=== PATIENT | male | born 1955 | race Caucasian/White ===

== ENCOUNTER 2020-08-05 10:03 | Inpatient (IN) ==
[2020-08-05 10:26] LABS: Basophils # (auto) 0.03 K/uL (0-0.2); Basophils % (auto) 0.3 %; Eosinophils # (auto) 0.02 K/uL (0-0.5); Eosinophils % (auto) 0.2 %; Hematocrit (blood only) 34.9 % (42-52); Hemoglobin 11.5 g/dL (14.0-18.0); Immature Granulocytes # (auto) 0.25 K/uL (0.00-0.02); Immature Granulocytes % (auto) 2.1 %; Lymphocytes # (auto) 1.41 K/uL (1.2-3.4); Lymphocytes % (auto) 12.1 %; Mean Corpuscular Hemoglobin 29.7 pg (25-34); Mean Corpuscular Volume 90.2 fL (80-100); Mean Platelet Volume 10.1 fL (7.4-10.4); Monocytes # (auto) 2.52 K/uL (0.11-0.59); Monocytes % (auto) 21.6 %; Neutrophils # (auto) 7.41 K/uL (1.4-6.5); Neutrophils % (auto) 63.7 %; Platelet Count 188 K/uL (130-400); RDW Coefficient of Variation 19.7 % (11.5-14.5); RDW Standard Deviation 60.8 fL (36.4-46.3); Red Blood Count 3.87 M/uL (4.7-6.1); White Blood Count 11.64 K/uL (4.8-10.8)
[2020-08-05] MEDS ORDERED: SODIUM CHLORIDE 0.9% 500 ML IV STA (10:26)
--- NOTE | 2020-08-05 10:38 | Emergency Department Note ---
History of Present Illness General Chief complaint: Abdominal Pain Time Seen by Provider: 08/05/20 10:16 Source: patient, family (I discussed with on the telephone) and EMS Mode of arrival: EMS Limitations: no limitations History of Present Illness Maximum Pain Intensity: 7 This patient comes in with lower abdominal pain and distention. He has a history of colon cancer with metastases to the liver. He has had all of his treatment in [place]. He is currently inpatient for weakness at [facility]. 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 He is also been pancytopenic due to recent chemo. He reports no fever he says his abdomen feels distended he tells me is never had any paracentesis. He denies chest pain or shortness of breath no Covid. He do es not think he is have the Covid vaccine. Medical command was given on route by Dr. Banegas and the patient had been given fentanyl and seems to be resting comfortably. He is in a port which has been accessed prior to arrival. There is a POLST which states limited interventions and DNR. There is also note on the chart that the sisters who are power of assistant district attorney want him transferred to [facility] if needed to be admitted. Home Medications Medication Instructions Recorded Confirmed Type cefepime [Maxipime] 2 g IV Q12H 08/05/20 08/05/20 History cholecalciferol (vitamin D3) 50 mcg PO QAM 08/05/20 08/05/20 History [Vitamin D3] docusate sodium 100 mg PO BID 08/05/20 08/05/20 History furosemide [Lasix] 20 mg PO BID 08/05/20 08/05/20 History metoprolol succinate 25 mg PO QAM 08/05/20 08/05/20 History multivitamin 1 tab PO QAM 08/05/20 08/05/20 History pantoprazole 40 mg PO DAILYBB 08/05/20 08/05/20 History potassium chloride 20 meq PO BIDM 08/05/20 08/05/20 History sodium chloride 0.9 % (flush) 10 ml IV Q12H 08/05/20 08/05/20 History [Normal Saline Flush] Allergies Allergy/AdvReac Type Severity Reaction Status Date / Time No Known Allergies Allergy Unverified 08/05/20 10:26 Past Med/Surg History Medical History (Updated 08/05/20 @ 15:08 by Catracho Guthrie MD) Port-A-Cath in place Family History (Updated 08/05/20 @ 14:29 by Talha Kahn) Mother Cancer Father Myocardial infarction Denies family history of Colorectal cancer Social History (Updated 08/05/20 @ 14:31 by Talha Kahn) Smoking Status: Former smoker Tobacco Type: Cigarettes Age Quit Using Tobacco: 21; Hx Alcohol Use: Yes Alcohol type Comment: quit in 20s marital status: / Current Living Situation: Alone Current Living Situation Comment: lives alone in [place] 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 Review of Systems A total of 10 systems reviewed and were otherwise negative Physical Exam Vital Signs Vital Signs - 24 hr 08/05/20 10:09 08/05/20 11:11 08/05/20 11:30 Temperature 36.8 C Temperature Source Oral Pulse Rate 94 H 93 H 91 H Pulse Rate from SpO2 Sensor 92 H 90 Pulse Rhythm Regular Pulse Strength Normal Respiratory Rate 21 14 22 Respiratory Effort / Characteristics Non-Labored Respiratory Depth Normal Respiratory Pattern Regular Blood Pressure 109/67 120/79 101/80 Blood Pressure Mean 81 92 87 Blood Pressure Position Sitting Pulse Oximetry 98 94 95 Oxygen Delivery Method Room Air Sepsis Recent Fever Within 48 Hours No Sepsis New/Unexplained Change in Mental Status No Sepsis Action Taken by Nursing No Action Required 08/05/20 12:30 08/05/20 13:00 Temperature Temperature Source Pulse Rate 91 H 91 H Pulse Rate from SpO2 Sensor 90 93 H Pulse Rhythm Pulse Strength Respiratory Rate 16 16 Respiratory Effort / Characteristics Respiratory Depth Respiratory Pattern Blood Pressure 112/83 103/77 Blood Pressure Mean 92 85 Blood Pressure Position Pulse Oximetry 92 93 Oxygen Delivery Method Sepsis Recent Fever Within 48 Hours Sepsis New/Unexplained Change in Mental Status Sepsis Action Taken by Nursing General: Well developed well nourished chronically ill-appearing older male who appears in no acute distress, breathing comfortably on room air. Normal speech HEENT: Normal cephalic atraumatic. Pupils are equal round and reactive to light. Extraocular movements are intact. Oropharynx is pink with moist mucous membranes. No swelling of the mouth lips or tongue. Neck: Supple with a midline trachea. No meningeal signs or stiffness, no JVD or bruits. No Stridor. Chest: Clear to auscultation bilaterally. No wheezes or rhonchi. No increased work of breathing. A port in left chest which is accessed Heart: Regular rate and rhythm without murmurs or gallops. Abdomen: Soft nontender, mildly distended without significant tenderness and without rebound guarding or rigidity. Extremities: No cyanosis clubbing. Bilateral 1+ lower extremity edema. No calf tenderness or assymetry Spine/Back. Non tender to palpation. No CVA tenderness Skin: Good turgor without rashes. Neurologic exam: Cranial nerves two through 12 are intact. Motor and sensation are intact and symmetrical throughout. Course Administered Medications Discontinued Medications Sodium Chloride (Nss) 500 mls @ 999 mls/hr IV .Q31M STA Stop: 08/05/20 10:56 Last Infusion: 08/05/20 12:36 Dose: 0 mls/hr Documented by: [id number] Admin: 08/05/20 10:40 Dose: 999 mls/hr Documented by: [id number] Ioversol (Ioversol 100ml) 90 ml IV ONCE ONE Stop: 08/05/20 11:51 Last Admin: 08/05/20 11:51 Dose: 90 ml Documented by: [id number] Medical Decision Making Differential Diagnosis Cancer related complication, infection, ascites, SBP, neutropenia, bowel obstruction, pain related to cancer, metastatic cancer, cardiac disease, Covid, electrolyte or metabolic abnormality, UTI Medical Records Attestation: I reviewed the patient's medical records. Home Medications Current Medication List: was personally reviewed by me Laboratory Data Attestation: I reviewed the patient's lab results. Result diagrams: 08/05/20 10:10 08/05/20 10:10 Lab Results 08/05/20 08/05/20 08/05/20 Range/Units 10:10 10:10 10:10 WBC 11.64 H (4.8-10.8) K/uL RBC 3.87 L (4.7-6.1) M/uL Hgb 11.5 L (14.0-18.0) g/dL Hct 34.9 L (42-52) % MCV 90.2 (80-100) fL MCH 29.7 (25-34) pg MCHC 33.0 (32-36) g/dL RDW Std Deviation 60.8 H (36.4-46.3) fL RDW Coeff of Lucy 19.7 H (11.5-14.5) % Plt Count 188 (130-400) K/uL MPV 10.1 (7.4-10.4) fL Immature Gran % (Auto) 2.1 % Neut % (Auto) 63.7 % Lymph % (Auto) 12.1 % Norton % (Auto) 21.6 % Eos % (Auto) 0.2 % Baso % (Auto) 0.3 % Neut # (Auto) 7.41 H (1.4-6.5) K/uL Lymph # (Auto) 1.41 (1.2-3.4) K/uL Norton # (Auto) 2.52 H (0.11-0.59) K/uL Eos # (Auto) 0.02 (0-0.5) K/uL Baso # (Auto) 0.03 (0-0.2) K/uL Immature Gran # (Auto) 0.25 H (0.00-0.02) K/uL PT 13.0 H (9.0-12.0) Seconds INR 1.3 H (0.9-1.1) APTT 30.0 (21.0-31.0) Seconds PTT Ratio 1.1 Sodium 136 (136-145) mmol/L Potassium 3.7 (3.5-5.1) mmol/L Chloride 106 (98-107) mmol/L Carbon Dioxide 23 (21-32) mmol/L Anion Gap 8.0 (3-11) BUN 32 H (7-18) mg/dl Creatinine 0.86 (0.6-1.4) mg/dl Est Cr Clr Drug Dosing 86.8 ml/min Est GFR ( Amer) 106.2 Est GFR (Non-Af Amer) 91.6 BUN/Creatinine Ratio 37.6 H (10-20) Glucose 98 (70-99) mg/dl Calcium 8.6 (8.5-10.1) mg/dl Total Bilirubin 2.8 H (0.2-1) mg/dl AST 113 H (15-37) U/L ALT 33 (12-78) U/L Alkaline Phosphatase 377 H (45-117) U/L Troponin I (0-0.045) ng/ml Total Protein 6.0 L (6.4-8.2) gm/dl Albumin 1.8 L (3.4-5.0) gm/dl Globulin 4.2 H (2.5-4.0) gm/dl Albumin/Globulin Ratio 0.4 L (0.9-2) Lipase 170 (73-393) U/L COVID-19 Eval Order SARS-CoV-2 (PCR) (Negative) Influenza Type A (PCR) (Neg) Influenza Type B (PCR) (Neg) RSV (RT-PCR) (Neg) 08/05/20 08/05/20 08/05/20 Range/Units 10:10 11:18 11:18 WBC (4.8-10.8) K/uL RBC (4.7-6.1) M/uL Hgb (14.0-18.0) g/dL Hct (42-52) % MCV (80-100) fL MCH (25-34) pg MCHC (32-36) g/dL RDW Std Deviation (36.4-46.3) fL RDW Coeff of Lucy (11.5-14.5) % Plt Count (130-400) K/uL MPV (7.4-10.4) fL Immature Gran % (Auto) % Neut % (Auto) % Lymph % (Auto) % Norton % (Auto) % Eos % (Auto) % Baso % (Auto) % Neut # (Auto) (1.4-6.5) K/uL Lymph # (Auto) (1.2-3.4) K/uL Norton # (Auto) (0.11-0.59) K/uL Eos # (Auto) (0-0.5) K/uL Baso # (Auto) (0-0.2) K/uL Immature Gran # (Auto) (0.00-0.02) K/uL PT (9.0-12.0) Seconds INR (0.9-1.1) APTT (21.0-31.0) Seconds PTT Ratio Sodium (136-145) mmol/L Potassium (3.5-5.1) mmol/L Chloride (98-107) mmol/L Carbon Dioxide (21-32) mmol/L Anion Gap (3-11) BUN (7-18) mg/dl Creatinine (0.6-1.4) mg/dl Est Cr Clr Drug Dosing ml/min Est GFR ( Amer) Est GFR (Non-Af Amer) BUN/Creatinine Ratio (10-20) Glucose (70-99) mg/dl Calcium (8.5-10.1) mg/dl Total Bilirubin (0.2-1) mg/dl AST (15-37) U/L ALT (12-78) U/L Alkaline Phosphatase (45-117) U/L Troponin I < 0.015 (0-0.045) ng/ml Total Protein (6.4-8.2) gm/dl Albumin (3.4-5.0) gm/dl Globulin (2.5-4.0) gm/dl Albumin/Globulin Ratio (0.9-2) Lipase (73-393) U/L COVID-19 Eval Order CovFluRsv at [facility] SARS-CoV-2 (PCR) NEGATIVE (Negative) Influenza Type A (PCR) Negative (Neg) Influenza Type B (PCR) Negative (Neg) RSV (RT-PCR) Negative (Neg) Imaging Data Radiologist's Impression: Abdomen/Pelvis CT 08/05/20 11:[address] WITH IV CONTRAST CT DOSE: 600.78 mGy.cm HISTORY: Generalized abdominal pain. Metastatic colon cancer. TECHNIQUE: Multiaxial CT images of the abdomen and pelvis were performed followi ng the use of intravenous contrast. A dose lowering technique was utilized adhering to the principles of ALARA. COMPARISON STUDY: None. FINDINGS: Multiple scattered pulmonary nodules seen within the lung bases. Some of these are calcified. Dominant nodule within the left lower lobe measures 2 cm. This is concerning for extensive disease. Trace left pleural effusion. Moderate hiatus hernia containing a portion of the stomach and fluid. A catheter tip is seen within the superior cavoatrial junction. The heart is normal in size. A few subcentimeter right anterior diaphragmatic lymph nodes are noted. No pneumoperitoneum. No pneumatosis. 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 This is consistent with a chronic process. No suspicious lytic or blastic osseous lesions. Old left posterior rib fracture is noted. Moderate body wall edema. Innumerable hepatic lesions consistent with metastatic disease. Some of these are calcified suggesting posttreatment changes. This is a pseudocirrhosis appearance of the liver due to the metastatic lesions. The gallbladder is significantly retracted. The main portal vein is patent. The pancreas and spleen enhance normally. Normal left adrenal gland. A 4.7 cm heterogeneous lesion within the right adrenal gland consistent with a metastasis. No retroperitoneal lymphadenopathy. Normal caliber abdominal aorta. The bladder is unremarkable. No hydronephrosis. Bilateral peripelvic renal cysts, left greater than right. The kidneys enhance normally. Small to moderate ascites. Focal area of omental nodularity within the right upper quadrant best seen on image 234. Therefore, these findings likely represent peritoneal carcinomatosis. Mild pelvic floor collapse. Questionable thickening of the mid sigmoid colon which could be due to underdistention. The patient's known malignancy, a low-grade colitis, or diverticulitis could also have a similar appearance. No evidence for bowel obstruction. Normal appendix. IMPRESSION: 1. Extensive metastatic disease as described above including peritoneal carcinomatosis with a small to moderate amount of ascites. 2. Questionable thickening of the mid sigmoid colon which could be due to underdistention. The patient's known malignancy, a low-grade colitis, or diverticulitis could also have a similar appearance. 3. Additional findings as described above. ACT 112: Negative or not required by law. Electronically signed by: Santiago Llamas M.D. 08/05/2020 12:18 PM ECG Data Attestation: I personally reviewed and interpreted this ECG as follows: Indication: + abdominal pain Rate (beats per minute): 94 Rhythm: + normal sinus ECG Intervals/blocks: + First degree AV block, + Normal QRS and + Prolonged QT ECG Dora: + Normal ECG ST segments: + Normal ST segments ECG Findings: no PACs and no PVCs Comparison ECG Date: no prior available MDM Narrative This patient was brought in by EMS from [facility]. He has a history of metastatic liver cancer and is followed exclusively [place] thus far. His A port was accessed he had received fentanyl and seems much more comfortable. He does have a POLST which says that he is DNR. Blood work was obtained as well as an EKG. He was reassessed frequently. I did talk to his sister Adrianna at [phone]. She was in agreement with the plan and did also acknowledge that he was a DNR. The sisters who are power of assistant district attorney have asked that if he needs to be admitted they would like him sent to [place] where he is followed closely in the cancer center by Dr. Calvin. He has remained stable and has no significant acute electrolyte or metabolic abnormalities. Nothing suggest sepsis or acute coronary syndrome or arrhythmia. His CAT scan shows findings consistent with his metastatic cancer he has a small to mild amount of ascites. I do not think he likely has SBP. I did call and talk to Dr. Calvin at length who is his cancer doctor in [place]. He says at this point the patient needs fluids, pain management and diarrhea management. He thinks that this was from the patient taking too much of one of his medications. I did call and talk to [place] and attempt to get the patient transferred per the family's wishes. [facility] told us that they are completely full and cannot take the patient today. In light of this, I called back and talk to the sister, we will keep him here for hydration and pain management. he did receive additional morphine 2 mg IV after receiving IV fentanyl on route. He still is having some pain but does appear more comfortable. He was given additional IV fluids and will be admitted/observed in the hospital. Impression & Plan Colon carcinoma metastatic to multiple sites, Abdominal pain, Diarrhea, Abnormal LFTs Discharge Plan Visit Data Chief Complaint: Abdominal Pain ED Provider: Catracho Guthrie Discharge Problem: Colon carcinoma metastatic to multiple sites, Abdominal pain, Diarrhea, Ab normal LFTs Forms Stand Alone Forms: My [facility] Prescriptions Prescriptions: No Action pantoprazole 40 mg Tablet,Delayed Release (Dr/Ec) 40 mg PO DAILYBB RF: 0 docusate sodium 100 mg Capsule 100 mg PO BID RF: 0 furosemide [Lasix] 20 mg Tablet 20 mg PO BID RF: 0 potassium chloride 20 mEq Tablet Extended Release 20 meq PO BIDM RF: 0 multivitamin Tablet 1 tab PO QAM RF: 0 cefepime [Maxipime] 2 gram Recon Soln 2 g IV Q12H RF: 0 metoprolol succinate 25 mg Tablet Extended Release 24 Hr 25 mg PO QAM RF: 0 sodium chloride 0.9 % (flush) [Normal Saline Flush] Syringe 10 ml IV Q12H RF: 0 cholecalciferol (vitamin D3) [Vitamin D3] 50 mcg (2,000 unit) Capsule 50 mcg PO QAM RF: 0 Discharge Problem: Abdominal pain Qualifiers: Abdominal location: lower abdomen, unspecified Qualified Code(s): R10.30 - Lower abdominal pain, unspecified Diarrhea Qualifiers: Diarrhea type: unspecified type Qualified Code(s): R19.7 - Diarrhea, unspecified
[2020-08-05 10:43] LABS: Albumin Level 1.8 gm/dl (3.4-5.0); BUN Creatinine Ratio 37.6 (10-20); Calcium 8.6 mg/dl (8.5-10.1); Creatinine Clr Calc Pharmacy 86.8 ml/min; Est GFR (African American) 106.2; Est GFR (Non-African American) 91.6; Potassium 3.7 mmol/L (3.5-5.1)
[2020-08-05 10:46] LABS: Albumin Globulin Ratio 0.4 (0.9-2); Bilirubin,Total 2.8 mg/dl (0.2-1); Globulin 4.2 gm/dl (2.5-4.0)
[2020-08-05 11:12] LABS: INR 1.3 (0.9-1.1); Partial Thromboplastin Ratio 1.1
[2020-08-05] MEDS ORDERED: OPTIRAY 320 100ml IV ONE (11:50)
--- NOTE | 2020-08-05 12:19 | CT Scan Report ---
ABDOMEN AND PELVIS CT WITH IV CONTRAST CT DOSE: 600.78 mGy.cm HISTORY: Generalized abdominal pain. Metastatic colon cancer. TECHNIQUE: Multiaxial CT images of the abdomen and pelvis were performed following the use of intrave nous contrast. A dose lowering technique was utilized adhering to the principles of ALARA. COMPARISON STUDY: None. FINDINGS: Multiple scattered pulmonary nodules seen within the lung bases. Some of these are calcifie d. Dominant nodule within the left lower lobe measures 2 cm. This is concerning for extensive disease . Trace left pleural effusion. Moderate hiatus hernia containing a portion of the stomach and fluid. A catheter tip is seen within the superior cavoatrial junction. The heart is normal in size. A few kirby bcentimeter right anterior diaphragmatic lymph nodes are noted. No pneumoperitoneum. No pneumatosis. 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 This is consistent with a chronic proces s. No suspicious lytic or blastic osseous lesions. Old left posterior rib fracture is noted. Moderate body wall edema. Innumerable hepatic lesions consistent with metastatic disease. Some of these are c alcified suggesting posttreatment changes. This is a pseudocirrhosis appearance of the liver due to t he metastatic lesions. The gallbladder is significantly retracted. The main portal vein is patent. Th e pancreas and spleen enhance normally. Normal left adrenal gland. A 4.7 cm heterogeneous lesion with in the right adrenal gland consistent with a metastasis. No retroperitoneal lymphadenopathy. Normal c aliber abdominal aorta. The bladder is unremarkable. No hydronephrosis. Bilateral peripelvic renal cy sts, left greater than right. The kidneys enhance normally. Small to moderate ascites. Focal area of omental nodularity within the right upper quadrant best seen on image 234. Therefore, these findings likely represent peritoneal carcinomatosis. Mild pelvic floor collapse. Questionable thickening of th e mid sigmoid colon which could be due to underdistention. The patient's known malignancy, a low-grad e colitis, or diverticulitis could also have a similar appearance. No evidence for bowel obstruction. Normal appendix. IMPRESSION: 1. Extensive metastatic disease as described above including peritoneal carcinomatosis with a small t o moderate amount of ascites. 2. Questionable thickening of the mid sigmoid colon which could be due to underdistention. The patien t's known malignancy, a low-grade colitis, or diverticulitis could also have a similar appearance. 3. Additional findings as described above. ACT 112: Negative or not required by law. Electronically signed by: Santiago Llamas M.D. 08/05/2020 12:18 PM
[2020-08-05] MEDS ORDERED: SODIUM CHLORIDE 0.9% 500 ML IV SCH (13:00)
[2020-08-05 13:12] LABS: Influenza A virus by PCR Negative (Neg); Influenza B virus by PCR Negative (Neg); RSV by PCR Negative (Neg); SARS CoV2 RNA(COVID-19) InHosp NEGATIVE (Negative)
[2020-08-05] MEDS ORDERED: MoRPHine SULFATE 2 MG/ML CARP IV STA (13:22)
--- NOTE | 2020-08-05 14:31 | History & Physical Report ---
Date of Service August 05, 2020 Assessment & Plan (1) DVT of lower extremity, bilateral: After my ER visit with him I ordered STAT dopplers. These returned positive for b/l DVT. DVTs are secondary to his advance cancer. Uncertain of patient's insurance and cost of DOACs. Thus, started 1mg/kg of lovenox BID (80mg BID). Given his nutritional status, liver status, etc - recommend checking factor Xa level to ensure therapeutic levels are achieved. Check a factor 10a level 4 hours after tomorrow AM's dose. (2) Epigastric abdominal pain: Suspect gastritis. Cannot rule out other etiologies. Doubt SBP - he does not have generalized abd pain, has been taking cefepime for well over a week or longer, etc. Defer on diagnostic paracentesis for now. CT abd/pelvis shows ?distal colitis but he has NO pain over the LLQ; pain is all upper abdomen. He could be having some pain from his left lobe liver met and the peritoneal mets. u/a not suspicious for UTI. Plan - increase PPI to bid dosing. add carafate qid. pain meds prn. reassess tomorrow. (3) Colon carcinoma metastatic to multiple sites: advanced colon ca with distant mets in numerous locations - liver, lungs, adrenal gland, etc. CT head without obvious mets. last chemo was in June and he tolerated this poorly with chemo-induced pancytopenia requiring PRBCs, severe weakness contributing to his need for hospitalization in [place], ?neutropenic fever, etc. follows with oncology at [facility]. poor candidate for ongoing chemo but defer this ultimately to his oncologist. (4) Peritoneal carcinomatosis: as noted on CT today. doubt SBP given clinical presentation. if his pain worsens, however, consider diagnostic paracentesis. (5) Lower extremity edema: 2nd to DVTs and severe hypoalbuminemia. (6) Abnormal LFTs: 2nd to liver mets. no signs of hepatic encephalopathy. (7) Candidiasis of mouth and esophagus: start magic mouthwash q6h swish/spit (8) Essential (primary) hypertension: hold lasix cont metoprolol with appropriate hold parameters (9) Severe protein-calorie malnutrition: 2nd to advanced colon cancer (10) Hiatal hernia: moderate, as seen on CT today. suspect that he likely has element of ROSAS, gastritis, etc. (11) DVT prophylaxis: has DVTs of b/l LEs start lovenox 80mg BID Mary Liriano, sister, updated extensively by phone this evening sister requesting that pt not return to [facility] and instead be placed in SNF in [place] or [place] area; patient and his family are from [place] initially was placed on observation status, then changed to admission status a few hours later following discovery of DVTs as well as need for SNF placement History of Present Illness Chief Complaint: abdominal pain Primary Care Provider: NO PCP 65yo male with history of stage 4 colon cancer who presents with diffuse abdominal pain. This started while eating lunch at [facility]. He is there for rehab following an admission to [facility] for chemo-induced pancytopenia and weakness. The pain is constant, sharp, and associated with diarrhea. Diarrhea started about the time of his discharge from [facility] and subsequent admission to [facility]. Diarrhea is about 1x/day. No blood in the stool. No fevers/chills. He thinks he had paracentesis at [facility] during his recent admission but isn't quite certain. No cough, shortness of breath, or chest pain. A limited number of records were available from [facility]. Records show that patient received cefepime via his port while at [facility] (for neutropenic fever?) and was discharged to [facility] with ongoing cefepime use. Records don't describe any positive blood culture or pneumonia. He received PRBCs for anemia. Allergies Allergy/AdvReac Type Severity Reaction Status Date / Time No Known Allergies Allergy Unverified 08/05/20 10:26 Home Medications Medication Instructions Recorded Confirmed Type cefepime [Maxipime] 2 g IV Q12H 08/05/20 08/05/20 History cholecalciferol (vitamin D3) 50 mcg PO QAM 08/05/20 08/05/20 History [Vitamin D3] docusate sodium 100 mg PO BID 08/05/20 08/05/20 History furosemide [Lasix] 20 mg PO BID 08/05/20 08/05/20 History metoprolol succinate 25 mg PO QAM 08/05/20 08/05/20 History multivitamin 1 tab PO QAM 08/05/20 08/05/20 History pantoprazole 40 mg PO DAILYBB 08/05/20 08/05/20 History potassium chloride 20 meq PO BIDM 08/05/20 08/05/20 History sodium chloride 0.9 % (flush) 10 ml IV Q12H 08/05/20 08/05/20 History [Normal Saline Flush] Past Med/Surg History Medical History (Updated 08/05/20 @ 23:24 by Talha Kahn) Colon carcinoma metastatic to multiple sites Essential (primary) hypertension Peritoneal carcinomatosis Port-A-Cath in place Severe protein-calorie malnutrition Family History (Updated 08/05/20 @ 14:29 by Talha Kahn) Mother Cancer Father Myocardial infarction Denies family history of Colorectal cancer Social History (Updated 08/05/20 @ 14:31 by Talha Kahn) Smoking Status: Former smoker Tobacco Type: Cigarettes Age Quit Using Tobacco: 21; Hx Alcohol Use: No Hx Substance Use: No Preferred Language: Tristanian Communication Ability: Effective 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; Toys for [employer] How many Children do You have: 1 How many Children do You have Comment: son Other Information That Helps Us Care for You: No Feels Safe at Home: Yes Safety Concerns: Feels Safe At This Time Assistive Devices: None Review of Systems Constitutional: + fatigue, + anorexia (x months ) and + weight loss (50+ pounds - time period uncertain ); no fever and no chills Eyes: no worsening vision Ear, Nose, Mouth, Throat: + mouth lesions Respiratory: no cough Cardiovascular: + edema (present for several weeks ); no chest pain and no dyspnea at rest Gastrointestinal: + abdominal pain and + diarrhea/loose stools; no vomiting and no blood in stools Genitourinary: no dysuria Musculoskeletal: no joint pain Integumentary: no rash Neurologic: + generalized weakness; no headache(s) Psychiatric: + depression Endocrine: + fatigue Hematologic / Lymphatic: no easy bleeding and no easy bruising Physical Exam Constitutional: + cachectic and + frail appearing; no acute distress and no altered mental status Eyes: + anicteric sclerae and PERRL ENMT: Mouth: + oral mucosal abnormality (mucositis on tongue; thrush plaques buccal mucosa ) Neck: trachea midline, no thyromegaly Respiratory: no respiratory distress Auscultation: + diminished lung sounds and + rales (minimal - bases ) Cardiovascular: Rate/Rhythm: regular rate and regular rhythm Heart Sounds: normal S1 and normal S2; no murmur Vessels: posterior tibial pulses present and dorsalis pedis pulses present; no JVD Extremities: + edema (1-2+ b/l ) and + vascular access device (left upper chest - port - clean, nontender ) Gastrointestinal (Abdomen): Inspection/Auscultation: + abdomen distended (due to ascites ) and normal bowel sounds Percussion/Palpation: + abdomen tender (RUQ and high epigastric region ), + hepatomegaly (mass palpable left lobe of liver; liver edge irregular) and + ascites; no guarding Musculoskeletal: Extremities: strength 5/5 throughout and + muscle atrophy (legs) Skin: + pallor Neurologic: deep tendon reflexes 2+ bilaterally and moves all extremities Psychiatric: Orientation: alert and oriented x 3 Lymphatic: no cervical lymphadenopathy Results & Data Results & Data ([facility]) Vital Signs (Past 12 Hours) Vital Signs Temp Pulse Resp BP Pulse Ox 08/05/20 11:11 93 H 14 120/79 94 08/05/20 10:09 36.8 C 94 H 21 109/67 98 Laboratory Results Laboratory Results - last 24 hr 08/05/20 08/05/20 08/05/20 10:10 10:10 10:10 WBC 11.64 H RBC 3.87 L Hgb 11.5 L Hct 34.9 L MCV 90.2 MCH 29.7 MCHC 33.0 RDW Std Deviation 60.8 H RDW Coeff of Lucy 19.7 H Plt Count 188 MPV 10.1 Immature Gran % (Auto) 2.1 Neut % (Auto) 63.7 Lymph % (Auto) 12.1 [place] % (Auto) 21.6 Eos % (Auto) 0.2 Baso % (Auto) 0.3 Neut # (Auto) 7.41 H Lymph # (Auto) 1.41 [place] # (Auto) 2.52 H Eos # (Auto) 0.02 Baso # (Auto) 0.03 Immature Gran # (Auto) 0.25 H PT 13.0 H INR 1.3 H APTT 30.0 PTT Ratio 1.1 Sodium 136 Potassium 3.7 Chloride 106 Carbon Dioxide 23 Anion Gap 8.0 BUN 32 H Creatinine 0.86 Est Cr Clr Drug Dosing 86.8 Est GFR ( Amer) 106.2 Est GFR (Non-Af Amer) 91.6 BUN/Creatinine Ratio 37.6 H Glucose 98 Calcium 8.6 Total Bilirubin 2.8 H AST 113 H ALT 33 Alkaline Phosphatase 377 H Troponin I Total Protein 6.0 L Albumin 1.8 L Globulin 4.2 H Albumin/Globulin Ratio 0.4 L Lipase 170 Urine Color Urine Appearance Urine pH Ur Specific [place] Urine Protein Urine Glucose (UA) Urine Ketones Urine Blood Urine Nitrite Urine Bilirubin Urine Urobilinogen Ur Leukocyte Esterase Nasal Screen MRSA (PCR) COVID-19 Eval Order SARS-CoV-2 (PCR) Influenza Type A (PCR) Influenza Type B (PCR) RSV (RT-PCR) 08/05/20 08/05/20 08/05/20 10:10 11:18 11:18 WBC RBC Hgb Hct MCV MCH MCHC RDW Std Deviation RDW Coeff of Lucy Plt Count MPV Immature Gran % (Auto) Neut % (Auto) Lymph % (Auto) [place] % (Auto) Eos % (Auto) Baso % (Auto) Neut # (Auto) Lymph # (Auto) [place] # (Auto) Eos # (Auto) Baso # (Auto) Immature Gran # (Auto) PT INR APTT PTT Ratio Sodium Potassium Chloride Carbon Dioxide Anion Gap BUN Creatinine Est Cr Clr Drug Dosing Est GFR ( Amer) Est GFR (Non-Af Amer) BUN/Creatinine Ratio Glucose Calcium Total Bilirubin AST ALT Alkaline Phosphatase Troponin I < 0.015 Total Protein Albumin Globulin Albumin/Globulin Ratio Lipase Urine Color Urine Appearance Urine pH Ur Specific [place] Urine Protein Urine Glucose (UA) Urine Ketones Urine Blood Urine Nitrite Urine Bilirubin Urine Urobilinogen Ur Leukocyte Esterase Nasal Screen MRSA (PCR) COVID-19 Eval Order CovFluRsv at [facility] SARS-CoV-2 (PCR) NEGATIVE Influenza Type A (PCR) Negative Influenza Type B (PCR) Negative RSV (RT-PCR) Negative 08/05/20 08/05/20 14:59 18:30 WBC RBC Hgb Hct MCV MCH MCHC RDW Std Deviation RDW Coeff of Lucy Plt Count MPV Immature Gran % (Auto) Neut % (Auto) Lymph % (Auto) [place] % (Auto) Eos % (Auto) Baso % (Auto) Neut # (Auto) Lymph # (Auto) [place] # (Auto) Eos # (Auto) Baso # (Auto) Immature Gran # (Auto) PT INR APTT PTT Ratio Sodium Potassium Chloride Carbon Dioxide Anion Gap BUN Creatinine Est Cr Clr Drug Dosing Est GFR ( Amer) Est GFR (Non-Af Amer) BUN/Creatinine Ratio Glucose Calcium Total Bilirubin AST ALT Alkaline Phosphatase Troponin I Total Protein Albumin Globulin Albumin/Globulin Ratio Lipase Urine Color Dark Yellow Urine Appearance Clear Urine pH 5.5 Ur Specific [place] 1.027 Urine Protein Negative Urine Glucose (UA) Negative Urine Ketones Trace H Urine Blood Negative Urine Nitrite Negative Urine Bilirubin Negative Urine Urobilinogen Negative Ur Leukocyte Esterase Negative Nasal Screen MRSA (PCR) Negative COVID-19 Eval Order SARS-CoV-2 (PCR) Influenza Type A (PCR) Influenza Type B (PCR) RSV (RT-PCR) Diagnostic Findings Abdomen/Pelvis CT 08/05/20 11:[address] WITH IV CONTRAST CT DOSE: 600.78 mGy.cm HISTORY: Generalized abdominal pain. Metastatic colon cancer. TECHNIQUE: Multiaxial CT images of the abdomen and pelvis were performed following the use of intravenous contrast. A dose lowering technique was utilized adhering to the principles of ALARA. COMPARISON STUDY: None. FINDINGS: Multiple scattered pulmonary nodules seen within the lung bases. Some of these are calcified. Dominant nodule within the left lower lobe measures 2 cm. This is concerning for extensive disease. Trace left pleural effusion. Moderate hiatus hernia containing a portion of the stomach and fluid. A catheter tip is seen within the superior cavoatrial junction. The heart is normal in size. A few subcentimeter right anterior diaphragmatic lymph nodes are noted. No pneumoperitoneum. No pneumatosis. 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 This is consistent with a chronic process. No suspicious lytic or blastic osseous lesions. Old left posterior rib fracture is noted. Moderate body wall edema. Innumerable hepatic lesions consistent with metastatic disease. Some of these are calcified suggesting posttreatment changes. This is a pseudocirrhosis appearance of the liver due to the metastatic lesions. The gallbladder is significantly retracted. The main portal vein is patent. The pancreas and spleen enhance normally. Normal left adrenal gland. A 4.7 cm heterogeneous lesion within the right adrenal gland consistent with a metastasis. No retroperitoneal lymphadenopathy. Normal caliber abdominal aorta. The bladder is unremarkable. No hydronephrosis. Bilateral peripelvic renal cysts, left greater than right. The kidneys enhance normally. Small to moderate ascites. Focal area of omental nodularity within the right upper quadrant best seen on image 234. Therefore, these findings likely represent peritoneal carcinomatosis. Mild pelvic floor collapse. Questionable thickening of the mid sigmoid colon which could be due to underdistention. The patient's known malignancy, a low-grade colitis, or diverticulitis could also have a similar appearance. No evidence for bowel obstruction. Normal appendix. IMPRESSION: 1. Extensive metastatic disease as described above including peritoneal carcinomatosis with a small to moderate amount of ascites. 2. Questionable thickening of the mid sigmoid colon which could be due to underdistention. The patient's known malignancy, a low-grade colitis, or diverticulitis could also have a similar appearance. 3. Additional findings as described above. ACT 112: Negative or not required by law. Electronically signed by: Santiago Llamas M.D. 08/05/2020 12:18 PM Venous Doppler Study 08/05/20 14:56 BILATERAL LOWER EXTREMITY VENOUS DOPPLER HISTORY: colon ca; bilateral lower extremity edema; eval DVT COMPARISON STUDY: None. FINDINGS: Near occlusive thrombus involving the right common femoral vein. The remaining right lower extremity deep venous structures are patent. The left common femoral and superficial femoral veins are patent. There is near occlusive thrombus involving the left popliteal, posterior tibial, peroneal veins. IMPRESSION: Bilateral lower extremity DVT as described above. ACT 112: Negative or not required by law. Electronically signed by: Santiago Llamas M.D. 08/05/2020 3:[address] 08/05/20 16:[address] DOSE: 614.27 mGy.cm HISTORY: Altered mental status. colon ca; eval for intracranial pathology TECHNIQUE: Multiaxial CT images of the head were performed without the use of intravenous contrast. Automated exposure control was utilized for this study. A dose lowering technique was utilized adhering to the principles of ALARA. Comparison: None. Findings: Mild mucosal thickening within the maxillary sinuses. The mastoid air cells are clear. The calvarium and skull base are intact. There is no mass, hematoma, midline shift, acute infarct. White matter hypodensity is nonspecific but suggestive of microvascular ischemic change. The ventricles and sulci demonstrate mild age-related involutional changes. Moderate cerebellar atrophy resulting in prominence of the cisterna magna. Impression: No acute intracranial abnormality. Moderate cerebellar atrophy. ACT 112: Negative or not required by law. Electronically signed by: Santiago Llamas M.D. 08/05/2020 5:46 PM EKG - my reading - NSR, QTc top-normal, diffuse low-voltage anterior and limb leads, no ST segment depression Code Status & VTE Plan Code Status DNR VTE Prophylaxis Plan VTE Prophylaxis will be ordered: Yes PG Care Time/CCT Total # of Minutes Spent Total Time Spent with Patient: Total time spent is greater than 50% in coordination of care (as documented) at patient's floor/unit and/or counseling patient: Coding Level of Care Code 47960 Initial Inpt Care Lvl 3 Diagnoses DVT of lower extremity, bilateral I82.403 Affected thrombotic vein of extremity: unspecified vein of extremity Chronicity: acute Epigastric abdominal pain R10.13 Colon carcinoma metastatic to multiple sites C18.9 Peritoneal carcinomatosis C78.6 Lower extremity edema R60.0 Abnormal LFTs R94.5 Candidiasis of mouth and esophagus B37.81; B37.0 Essential (primary) hypertension I10 Severe protein-calorie malnutrition E43 Hiatal hernia K44.9 DVT prophylaxis Z29.9 (1) DVT of lower extremity, bilateral Affected thrombotic vein of extremity: unspecified vein of extremity Chroni city: acute Qualified Code(s): I82.403 - Acute embolism and thrombosis of unspecified deep veins of lower extremity, bilateral
[2020-08-05] MEDS ORDERED: FAMOTIDINE 20MG IV PUSH 20 MG/5 ML SYR IV STA (14:49)
[2020-08-05] MEDS ORDERED: SUCRALFATE 1 GM/10 ML UDC PO STA (14:49)
[2020-08-05 15:24] LABS: Appearance Urine Clear (Clear); Bilirubin Urine Negative (Negative); Blood Urine Negative (Negative); Color Urine Dark Yellow; Glucose Urine UA Negative (Negative); Ketones Urine Trace (Negative); Leukocyte Esterase Urine Negative (Negative); Nitrite Urine Negative (Negative); Protein Urine Negative (Negative); Specific Gravity Urine 1.027 (1.000-1.030); Urobilinogen Urine Negative (Negative); pH Urine 5.5 (4.5-7.5)
[2020-08-05] MEDS ORDERED: MoRPHine SULFATE 2 MG/ML CARP ONE (15:51)
--- NOTE | 2020-08-05 15:51 | Ultrasound Report ---
BILATERAL LOWER EXTREMITY VENOUS DOPPLER HISTORY: colon ca; bilateral lower extremity edema; eval DVT COMPARISON STUDY: None. FINDINGS: Near occlusive thrombus involving the right common femoral vein. The remaining right lower extremity deep venous structures are patent. The left common femoral and superficial femoral veins ar e patent. There is near occlusive thrombus involving the left popliteal, posterior tibial, peroneal v eins. IMPRESSION: Bilateral lower extremity DVT as described above. ACT 112: Negative or not required by law. Electronically signed by: Santiago Llamas M.D. 08/05/2020 3:50 PM
[2020-08-05] MEDS ORDERED: D5NSS + 20MEQ KCL 20 MEQ/1,000 ML BAG IV SCH (16:42)
[2020-08-05] MEDS ORDERED: ONDANSETRON INJ 2 MG/ML 2 ML VIAL IV PRN (16:42)
--- NOTE | 2020-08-05 17:48 | CT Scan Report ---
HEAD CT NONCONTRAST CT DOSE: 614.27 mGy.cm HISTORY: Altered mental status. colon ca; eval for intracranial pathology TECHNIQUE: Multiaxial CT images of the head were performed without the use of intravenous contrast. A utomated exposure control was utilized for this study. A dose lowering technique was utilized adheri ng to the principles of ALARA. Comparison: None. Findings: Mild mucosal thickening within the maxillary sinuses. The mastoid air cells are clear. The calvarium and skull base are intact. There is no mass, hematoma, midline shift, acute infarct. White matter hypodensity is nonspecific but suggestive of microvascular ischemic change. The ventricles and sulci demonstrate mild age-related involutional changes. Moderate cerebellar atrophy resulting in pr ominence of the cisterna magna. Impression: No acute intracranial abnormality. Moderate cerebellar atrophy. ACT 112: Negative or not required by law. Electronically signed by: Santiago Llamas M.D. 08/05/2020 5:46 PM
[2020-08-05] MEDS: ENOXAPARIN 80 MG/0.8 ML SYR SQ SCH (19:29)
[2020-08-05] MEDS: SUCRALFATE 1 GM/10 ML UDC PO SCH (21:05)
[2020-08-05] MEDS: PANTOprazole 40 MG TAB PO SCH (21:05)
[2020-08-06] MEDS: ENOXAPARIN 80 MG/0.8 ML SYR SQ SCH ×2 (05:37→19:25)
[2020-08-06] MEDS: HEPARIN 100 UNIT/ML 5ML FLUSH FLUSH PRN (06:15)
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
[2020-08-06] MEDS: SUCRALFATE 1 GM/10 ML UDC PO SCH ×4 (08:06→20:25)
[2020-08-06] MEDS: MULTIVITAMIN TAB PO SCH (08:06)
[2020-08-06] MEDS: CHOLECALCIFEROL 1,000 UNITS 25 MCG TAB PO SCH (08:06)
[2020-08-06] MEDS: METOPROLOL SUCC 25MG EXT REL TAB PO SCH (08:06)
[2020-08-06] MEDS: PANTOprazole 40 MG TAB PO SCH ×2 (08:06→20:24)
[2020-08-07] MEDS: MoRPHine SULFATE 2 MG/ML CARP IV PRN (00:05)
[2020-08-07] MEDS: HEPARIN 100 UNIT/ML 5ML FLUSH FLUSH PRN ×3 (05:58→16:51)
--- NOTE | 2020-08-07 06:12 | Electrocardiogram Report ---
Test Reason : Blood Pressure : / mmHG Vent. Rate : 094 BPM Atrial Rate : 094 BPM P-R Int : 214 ms QRS Dur : 078 ms QT Int : 382 ms P-R-T Axes : 041 -11 051 degrees QTc Int : 477 ms Sinus rhythm with 1st degree A-V block Low voltage QRS Inferior infarct , age undetermined Cannot rule out Anterior infarct , age undetermined Nonspecific T wave abnormality Abnormal ECG No previous ECGs available Confirmed by Ryan Lora ([id number]) on 08/07/2020 6:12:12 AM Referred By: [facility] Confirmed By:Ryan Lora
[2020-08-07 06:37] LABS: Albumin Level 1.8 gm/dl (3.4-5.0); BUN Creatinine Ratio 45.2 (10-20); Calcium 8.4 mg/dl (8.5-10.1); Creatinine Clr Calc Pharmacy 124.4 ml/min; Est GFR (African American) 123.2; Est GFR (Non-African American) 106.3; Potassium 3.6 mmol/L (3.5-5.1)
[2020-08-07 06:40] LABS: Albumin Globulin Ratio 0.4 (0.9-2); Bilirubin,Total 2.3 mg/dl (0.2-1); Globulin 4.3 gm/dl (2.5-4.0); Total Protein 6.1 gm/dl (6.4-8.2)
[2020-08-07] MEDS: SUCRALFATE 1 GM/10 ML UDC PO SCH ×4 (07:45→20:30)
[2020-08-07] MEDS: PANTOprazole 40 MG TAB PO SCH ×2 (07:45→20:30)
[2020-08-07] MEDS: METOPROLOL SUCC 25MG EXT REL TAB PO SCH (07:45)
[2020-08-07] MEDS: MULTIVITAMIN TAB PO SCH (07:46)
[2020-08-07] MEDS: CHOLECALCIFEROL 1,000 UNITS 25 MCG TAB PO SCH (07:46)
--- NOTE | 2020-08-07 10:06 | Ultrasound Report ---
ULTRASOUND GUIDED DIAGNOSTIC AND THERAPEUTIC PARACENTESIS CLINICAL HISTORY: ascites likely malignant COMPARISON STUDY: CT of the abdomen and pelvis August 05, 2020. PROCEDURE: The risks, benefits, and alternatives to the procedure were discussed with the patient inc luding the risk of bleeding, infection and injury to adjacent structures. The patient agreed to the procedure and informed written consent was obtained. Following real-time ultrasound localization, the skin was prepped and draped. Following local anesthesia with Xylocaine, the sheath paracentesis need le was inserted and approximately 5 liters of straw-colored fluid was removed by vacuum suction. The patient tolerated the procedure well and no immediate complications were evident. IMPRESSION: Ultrasound-guided paracentesis with removal of 5 liters of ascites. 1 L of ascites was s ent to the laboratory for analysis as ordered. ACT 112: Negative or not required by law. Electronically signed by: Edward Davis M.D. 08/07/2020 10:05 AM
[2020-08-07 11:02] LABS: Albumin Peritoneal Fluid < 0.6 g/dl; Glucose Peritoneal Fluid 111 mg/dl; LDH Peritoneal Fluid 79 U/L; Lipase Peritoneal Fluid 98 U/L; Triglyceride Peritoneal Fluid 44 mg/dl
[2020-08-07 11:05] LABS: Amylase Peritoneal Fluid 16 U/L; Total Protein Peritoneal Fluid 1.2 g/dl
[2020-08-07 11:06] LABS: Appearance Peritoneal Fluid CLEAR; Basophils, Fluid 0 %; Color Peritoneal Fluid YELLOW; Eosinophils, Fluid 0 %; Lymphocytes, Fluid 26 %; Mono,Macrophage,Mesothelial 47 %; Neutrophils, Fluid 27 %; RBC Peritoneal Fluid (A) < 3000 /uL; WBC Peritoneal Fluid (A) 120 /ul (0-300)
--- NOTE | 2020-08-07 12:23 | Hospitalist Progress Note ---
Date of Service August 07, 2020 Assessment & Plan (1) Epigastric abdominal pain: Pt has abdominal carcinomatosis, will also treat with other causes with PPI therapeutic paracentesis 08/07/20 for almost 6 liters he had a lot of pain relief follow up on analysis: only 120WBC so does not meet criteria for SBP (2) DVT of lower extremity, bilateral: DVTs are secondary to his advance cancer. 1mg/kg of lovenox BID (80mg BID). held this morning for paracentesis, resume this evening (3) Colon carcinoma metastatic to multiple sites: advanced colon ca with distant mets in numerous locations - liver, lungs, adrenal gland, etc. CT head without obvious mets last chemo was in June and he tolerated this poorly with chemo-induced pancytopenia requiring PRBCs, severe weakness contributing to his need for hospitalization in [place], ?neutropenic fever, etc. follows with oncology at [facility]. Dr Oconnor poor candidate for ongoing chemo but defer this ultimately to his oncologist. family agreeable to palliative care consult, sister states they are working home caregivers to have pt come home on hospice eventually (4) Peritoneal carcinomatosis: as noted on CT doubt SBP given clinical presentation. therapeutic paracentesis today for almost 6 liters, feels better (5) Lower extremity edema: 2nd to DVTs and severe hypoalbuminemia. (6) Abnormal LFTs: 2nd to liver mets. no signs of hepatic encephalopathy. (7) Candidiasis of mouth and esophagus: start magic mouthwash q6h swish/spit (8) Essential (primary) hypertension: hold lasix cont metoprolol with appropriate hold parameters (9) Severe protein-calorie malnutrition: 2nd to advanced colon cancer (10) Hiatal hernia: moderate, as seen on CT today. suspect that he likely has element of ROSAS, gastritis, etc. (11) DVT prophylaxis: has DVTs of b/l LEs lovenox 80mg BID Mary Liriano, sister, updated extensively by phone by prior hospitalist sister requesting that pt not return to [facility] and instead be placed in SNF in [place] or [facility]; patient and his family are from [facility] working on placement, he is stable for discharge once SNF is secured Admission and Anticipated Discharge Date Admission Date: August 05, 2020 Subjective patient had 5 liters removed with paracentesis today, says he is feeling much better he is breathing well, no chest pain / pressure, no cough, far less abdominal pain he says he does not have much of an appetite right now discussed going to SNF closer to home in the [place] area, he agrees, CM working on details reviewed chart reviewed labs, bili 2.3, AST 128, Alk phos 449, albumin 1.8 will give Albumin IV now that he had paracentesis Review of Systems Review of Systems: All systems reviewed & are unremarkable except as noted in Subjective Constitutional: + fatigue and + weakness; no fever Respiratory: no cough and no dyspnea Cardiovascular: no chest pain Gastrointestinal: + abdominal pain (improved, due to distension with ascites); no nausea, no vomiting, no constipation and no diarrhea/loose stools Physical Exam Constitutional: WD/WN, vitals as above Neck: trachea midline, no thyromegaly Respiratory: normal respiratory effort, lungs clear to auscultation Cardiovascular: RRR, no murmur, no edema Gastrointestinal (Abdomen): Inspection/Auscultation: + abdomen distended and normal bowel sounds Percussion/Palpation: abdomen soft and + ascites; abdomen nontender Musculoskeletal: Head/Neck/Chest: normocephalic, head atraumatic and neck supple Extremities: extremities normal to inspection, + abnormal strength (generalized weakness) and + muscle atrophy Skin: + jaundice Neurologic: patellar DTR's 2+ bilat, sensation intact and PERRL, EOMI, accommodation nl, no face palsy, no dysarthria Psychiatric: A+Ox3, euthymic affect Lymphatic: no cervical or axillary lymphadenopathy Results & Data Results & [facility]) Vital Signs (Past 12 Hours) Vital Signs Temp Pulse Resp BP Pulse Ox 08/07/20 10:15 36.4 C L 87 16 104/68 96 08/07/20 07:26 36.3 C L 99 H 16 103/73 95 08/07/20 04:11 36.5 C 94 H 20 104/73 93 Laboratory Results Laboratory Results - last 24 hr 08/07/20 08/07/20 08/07/20 05:55 05:55 Unknown Sodium 138 Potassium 3.6 Chloride 107 Carbon Dioxide 26 Anion Gap 5.0 BUN 27 H Creatinine 0.60 Est Cr Clr Drug Dosing 124.4 Est GFR ( Amer) 123.2 Est GFR (Non-Af Amer) 106.3 BUN/Creatinine Ratio 45.2 H Glucose 104 H Calcium 8.4 L Total Bilirubin 2.3 H AST 128 H ALT 41 Alkaline Phosphatase 449 H Lactate Dehydrogenase 541 H Total Protein 6.1 L Albumin 1.8 L Globulin 4.3 H Albumin/Globulin Ratio 0.4 L Fluid Neutrophils % Fluid Lymphocytes % Fluid Eosinophils % Fluid Basophils % Fluid Meso/Macro/Steuben % Fluid Comment Peritoneal Color Peritoneal Appearance Peritoneal WBC Peritoneal RBC Peritoneal Tot Protein 1.2 Peritoneal Albumin < 0.6 Peritoneal LDH 79 Peritoneal Glucose 111 Peritoneal Amylase 16 Peritoneal Lipase 98 Peritoneal Triglycerid 44 08/07/20 08/07/20 08/07/20 Unknown Unknown Unknown Sodium Potassium Chloride Carbon Dioxide Anion Gap BUN Creatinine Est Cr Clr Drug Dosing Est GFR ( Amer) Est GFR (Non-Af Amer) BUN/Creatinine Ratio Glucose Calcium Total Bilirubin AST ALT Alkaline Phosphatase Lactate Dehydrogenase Total Protein Albumin Globulin Albumin/Globulin Ratio Fluid Neutrophils % 27 Fluid Lymphocytes % 26 Fluid Eosinophils % 0 Fluid Basophils % 0 Fluid Meso/Macro/Steuben % 47 Fluid Comment Peritoneal Color YELLOW Peritoneal Appearance CLEAR Peritoneal WBC 120 Peritoneal RBC < 3000 Peritoneal Tot Protein Peritoneal Albumin Peritoneal LDH Peritoneal Glucose Cancelled Peritoneal Amylase Cancelled Peritoneal Lipase Peritoneal Triglycerid 08/07/20 08/07/20 08/07/20 Unknown Unknown Unknown Sodium Potassium Chloride Carbon Dioxide Anion Gap BUN Creatinine Est Cr Clr Drug Dosing Est GFR ( Amer) Est GFR (Non-Af Amer) BUN/Creatinine Ratio Glucose Calcium Total Bilirubin AST ALT Alkaline Phosphatase Lactate Dehydrogenase Total Protein Albumin Globulin Albumin/Globulin Ratio Fluid Neutrophils % Fluid Lymphocytes % Fluid Eosinophils % Fluid Basophils % Fluid Meso/Macro/Steuben % Fluid Comment Peritoneal Color Peritoneal Appearance Peritoneal WBC Peritoneal RBC Peritoneal Tot Protein Cancelled Peritoneal Albumin Peritoneal LDH Cancelled Peritoneal Glucose Peritoneal Amylase Peritoneal Lipase Cancelled Peritoneal Triglycerid 08/07/20 Unknown Sodium Potassium Chloride Carbon Dioxide Anion Gap BUN Creatinine Est Cr Clr Drug Dosing Est GFR ( Amer) Est GFR (Non-Af Amer) BUN/Creatinine Ratio Glucose Calcium Total Bilirubin AST ALT Alkaline Phosphatase Lactate Dehydrogenase Total Protein Albumin Globulin Albumin/Globulin Ratio Fluid Neutrophils % Fluid Lymphocytes % Fluid Eosinophils % Fluid Basophils % Fluid Meso/Macro/Steuben % Fluid Comment Peritoneal Color Peritoneal Appearance Peritoneal WBC Peritoneal RBC Peritoneal Tot Protein Peritoneal Albumin Peritoneal LDH Peritoneal Glucose Peritoneal Amylase Peritoneal Lipase Peritoneal Triglycerid Cancelled Medications Administered Current Inpatient Medications Nystatin 30 ml/ Dexamethasone 3.75 mg/ Diphenhydramine HCl 300 mg/ Sucrose 45 ml/Microcrystalline Cellulose 45 ml/ BARCODE IDENTIFIER 1 ea 0 ml PO Q6H [facility] Stop: 09/04/20 17:29 Last Admin: 08/07/20 11:42 Dose: 5 ml Documented by: Enoxaparin Sodium (Enoxaparin 80 Mg/0.8 Ml Syr) 80 mg SQ Q12H [facility] Stop: 09/04/20 18:29 Last Admin: 08/06/20 19:25 Dose: 80 mg Documented by: Heparin Sodium (Porcine) (Heparin 100 Unit/Ml 5ml Flush) 5 ml FLUSH PRN PRN PRN Reason: Flush Stop: 09/05/20 02:31 Last Admin: 08/07/20 08:02 Dose: 5 ml Documented by: Metoprolol Succinate (Metoprolol Succ 25mg Ext Rel Tab) 25 mg PO [facility] Stop: 09/05/20 08:59 Last Admin: 08/07/20 07:45 Dose: 25 mg Documented by: Morphine Sulfate (Morphine Sulfate 2 Mg/Ml Carp) 2 mg IV Q4H PRN PRN Reason: Pain Stop: 08/19/20 16:41 Last Admin: 08/07/20 00:05 Dose: 2 mg Documented by: Multivitamins (Multivitamin Tab) 1 tab PO [facility] Stop: 09/05/20 08:59 Last Admin: 08/07/20 07:46 Dose: 1 tab Documented by: Ondansetron HCl (Ondansetron Inj 2 Mg/Ml 2 Ml Vial) 4 mg IV Q6H PRN PRN Reason: Nausea Stop: 09/04/20 16:41 Pantoprazole Sodium (Pantoprazole 40 Mg Tab) 40 mg PO BID [facility] Stop: 09/04/20 20:59 Last Admin: 08/07/20 07:45 Dose: 40 mg Documented by: Sucralfate (Sucralfate 1 Gm/10 Ml Udc) 1 gm PO QID [facility] Stop: 09/04/20 20:59 Last Admin: 08/07/20 07:45 Dose: 1 gm Documented by: Vitamin D (Cholecalciferol 1,000 Units 25 Mcg Tab) 2,000 units PO QAM [facility] Stop: 09/05/20 08:59 Last Admin: 08/07/20 07:46 Dose: 2,000 units Documented by: PG Care Time/CCT Total # of Minutes Spent Total Time Spent with Patient: Total time spent is greater than 50% in coordination of care (as documented) at patient's floor/unit and/or counseling patient: Coding Level of Care Code 57392 Subseq Hosp Care Lvl 2 Diagnoses Epigastric abdominal pain R10.13 DVT of lower extremity, bilateral I82.403 Affected thrombotic vein of extremity: unspecified vein of extremity Chronicity: acute Colon carcinoma metastatic to multiple sites C18.9 Peritoneal carcinomatosis C78.6 Lower extremity edema R60.0 Abnormal LFTs R94.5 Candidiasis of mouth and esophagus B37.81; B37.0 Essential (primary) hypertension I10 Severe protein-calorie malnutrition E43 Hiatal hernia K44.9 DVT prophylaxis Z29.9 (1) DVT of lower extremity, bilateral Affected thrombotic vein of extremity: unspecified vein of extremity Chronicity: acute Qualified Code(s): I82.403 - Acute embolism and thrombosis of unspecified deep veins of lower extremity, bilateral
--- NOTE | 2020-08-07 13:04 | Palliative Care Consultation ---
Date of Consultation August 07, 2020 Assessment & Plan (1) Abdominal pain: Improved after paracentesis. IV morphine has been effective as needed. Abdominal location: lower abdomen, unspecified Qualified Code(s): R10.30 - Lower abdominal pain, unspecified (2) Palliative care encounter: I met with Parminder at bedside. He is very emotional and is struggling with being so far away from his family. This has been a difficult time for him with his hospitalization at [facility] and now here, with visitation restrictions for covid 19. He recognizes that he is declining and tells me that he has a strong bre in God. He has put his care in God's hands. He saw his mother of cancer many years ago and knows that he is approaching his dying time. His greatest wish is to be at his home for his and to be near his family in [facility]. I also spoke with his sister, Mary, who is his co POA with sister, Adrianna. She understands his prognosis and is trying to work on family support network to care for him in his home with hospice care. Unfortunately, his home will not be ready to return to until at least a week. Mary is considering SNF placement for a short period of time, possibly with PT/OT at the SNF until he is ready to return home. She understands that his rehab potential is limited. Case management is working with them on this plan. I answered Mary's questions about medications and controlling his pain. She confirms that Parminder would not want resuscitation, artificial feeding or hydration. I assured her that he is currently receiving medication through the IV but we can make sure that he has medication he needs for comfort regardless of IV access. (3) Peritoneal carcinomatosis: (4) Colon carcinoma metastatic to multiple sites: (5) Severe protein-calorie malnutrition: History of Present Illness Reason for Consultation: goals of care Requesting Physician: Dr. Cifuentes Attending Physician: Rogelio Valladares DO History of Present Illness 65 yo gentleman with history of Stage IV colon cancer metastatic to liver, lungs, adrenals and peritoneum. He has had abdominal pain and ascites with kyler toneal carcinomatosis. He was admitted with constant, sharp abdominal pain and had paracentesis today for 5 liters of fluid. He denies abdominal pain at this time. He has also been found to have bilateral lower extremity DVTs. He has been receiving his cancer treatment at [facility] where he was recently hospitalized. He and his family live in [facility]. We have been consulted to assist with goals of care. Allergies Allergy/AdvReac Type Severity Reaction Status Date / Time No Known Allergies Allergy Unverified 08/05/20 10:26 Home Medications Medication Instructions Recorded Confirmed Type cefepime [Maxipime] 2 g IV Q12H 08/05/20 08/05/20 History cholecalciferol (vitamin D3) 50 mcg PO QAM 08/05/20 08/05/20 History [Vitamin D3] docusate sodium 100 mg PO BID 08/05/20 08/05/20 History furosemide [Lasix] 20 mg PO BID 08/05/20 08/05/20 History metoprolol succinate 25 mg PO QAM 08/05/20 08/05/20 History multivitamin 1 tab PO QAM 08/05/20 08/05/20 History pantoprazole 40 mg PO DAILYBB 08/05/20 08/05/20 History potassium chloride 20 meq PO BIDM 08/05/20 08/05/20 History sodium chloride 0.9 % (flush) 10 ml IV Q12H 08/05/20 08/05/20 History [Normal Saline Flush] Patient History Medical History Colon carcinoma metastatic to multiple sites Essential (primary) hypertension Peritoneal carcinomatosis Port-A-Cath in place Severe protein-calorie malnutrition Family History Mother Cancer Father Myocardial infarction Denies family history of Colorectal cancer Social History Smoking Status: Former smoker Tobacco Type: Cigarettes Age Quit Using Tobacco: 21; Hx Alcohol Use: No Hx Substance Use: No Preferred Language: [place] Communication Ability: Effective Panel Beater Required: No Beliefs That Will Affect Care: None marital status: / Current Living Situation: Alone Current Living Situation Comment: came from [facility]. lives home alone in [place], [place] current occupation: golf course maintenance; [employer] How many Children do You have: 1 How many Children do You have Comment: son Other Information That Helps Us Care for You: No Feels Safe at Home: Yes Safety Concerns: Feels Safe At This Time Assistive Devices: None Review of Systems Review of Systems: [place] Symptom Assessment Scale Pain 0/3 Dyspnea 0/3 Nausea 1/3 Anxiety 2/3 Anorexia 2/3 Fatigue 2/3 Drowsiness 0/3 Palliative Performance Score 40% Physical Exam Constitutional: + ill appearing and + thin ENMT: temporal wasting Respiratory: normal respiratory effort; no labored breathing Cardiovascular: Rate/Rhythm: regular rate and regular rhythm Gastrointestinal (Abdomen): Inspection/Auscultation: abdomen not distended Musculoskeletal: Extremities: + muscle atrophy Neurologic: no focal motor deficits and not confused Psychiatric: Orientation: alert and oriented x 3 Affect: + anxious affect Results & Data ([facility]) Vital Signs (Past 12 Hours) Vital Signs Temp Pulse Resp BP Pulse Ox 08/07/20 10:15 97.5 F L 87 16 104/68 96 08/07/20 07:26 97.3 F L 99 H 16 103/73 95 08/07/20 04:11 97.7 F 94 H 20 104/73 93 PG Care Time/CCT Total # of Minutes Spent Total Time Spent with Patient: Total time spent is greater than 50% in coordination of care (as documented) at patient's floor/unit and/or counseling patient: total time spent 65 minutes with more than 50% of time spent on goals of care, hospice, symptom management, patient and family support Coding Level of Care Code 35056 Inpt Consult Level 3 Diagnoses Abdominal pain R10.30 Abdominal location: lower abdomen, unspecified Palliative care encounter Z51.5 Peritoneal carcinomatosis C78.6 Colon carcinoma metastatic to multiple sites C18.9 Severe protein-calorie malnutrition E43
[2020-08-07] MEDS: ALBUMIN 25% 12.5 GM/50 ML VIAL IV SCH ×4 (13:23→15:51)
[2020-08-07] MEDS: ENOXAPARIN 80 MG/0.8 ML SYR SQ SCH (18:06)
[2020-08-08] MEDS: ENOXAPARIN 80 MG/0.8 ML SYR SQ SCH ×2 (06:11→21:16)
[2020-08-08 06:46] LABS: Hematocrit (blood only) 33.9 % (42-52); Hemoglobin 10.6 g/dL (14.0-18.0); Mean Corpuscular Hgb Conc 31.3 g/dL (32-36); Mean Corpuscular Volume 92.6 fL (80-100); Mean Platelet Volume 9.6 fL (7.4-10.4); Platelet Count 133 K/uL (130-400); RDW Coefficient of Variation 20.1 % (11.5-14.5); RDW Standard Deviation 65.8 fL (36.4-46.3); Red Blood Count 3.66 M/uL (4.7-6.1); White Blood Count 11.17 K/uL (4.8-10.8)
[2020-08-08 07:17] LABS: Creatinine Clr Calc Pharmacy 169.6 ml/min; Est GFR (African American) 139.9; Est GFR (Non-African American) 120.7
[2020-08-08] MEDS: MULTIVITAMIN TAB PO SCH (08:02)
[2020-08-08] MEDS: SUCRALFATE 1 GM/10 ML UDC PO SCH ×4 (08:02→21:16)
[2020-08-08] MEDS: METOPROLOL SUCC 25MG EXT REL TAB PO SCH (08:02)
[2020-08-08] MEDS: PANTOprazole 40 MG TAB PO SCH ×2 (08:03→21:17)
[2020-08-08] MEDS: CHOLECALCIFEROL 1,000 UNITS 25 MCG TAB PO SCH (08:03)
--- NOTE | 2020-08-08 14:15 | Palliative Care Progress Note ---
Date of Service August 08, 2020 Assessment & Plan (1) Palliative care encounter: He is hopeful to return home. His sister is organizing family to help with care at home. His home will not be ready until at least another week. Plan is for discharge to SNF in [facility] for rehab with subsequent discharge to home and focus on comfort with hospice. (2) Peritoneal carcinomatosis: (3) Abdominal pain: Improved after paracentesis (4) Colon carcinoma metastatic to multiple sites: Admission and Anticipated Discharge Date Admission Date: August 05, 2020 Subjective Feeling tired today. He was able to ambulate with the walker in his room. He denies pain Review of Systems Review of Systems: [place] Symptom Assessment Scale Pain 0/3 Dyspnea 0/3 Nausea 0/3 Anxiety 1/3 Fatigue 2/3 Drowsiness 0/3 Palliative Performance Score 50% Physical Exam Constitutional: + ill appearing and comfortable ENMT: poor dentition, white oral exudate Respiratory: normal respiratory effort; no labored breathing Cardiovascular: Extremities: + edema Gastrointestinal (Abdomen): Inspection/Auscultation: + abdomen distended Neurologic: no focal motor deficits and not confused Results & Data ([facility]) Vital Signs (Past 12 Hours) Vital Signs Temp Pulse Resp BP Pulse Ox 08/08/20 11:27 98.1 F 88 18 125/70 94 08/08/20 07:58 98.1 F 93 H 19 102/67 94 08/08/20 02:58 97.7 F 67 18 96/63 L 98 PG Care Time/CCT Total # of Minutes Spent Total Time Spent with Patient: Total time spent is greater than 50% in coordination of care (as documented) at patient's floor/unit and/or counseling patient: Coding Level of Care Code 13214 Subseq Hosp Care Lvl 2 Diagnoses Palliative care encounter Z51.5 Peritoneal carcinomatosis C78.6 Abdominal pain R10.30 Abdominal location: lower abdomen, unspecified Colon carcinoma metastatic to multiple sites C18.9 (1) Abdominal pain Abdominal location: lower abdomen, unspecified Qualified Code(s): R10.30 - Lower abdominal pain, unspecified
--- NOTE | 2020-08-08 15:18 | Hospitalist Progress Note ---
Date of Service August 08, 2020 Assessment & Plan (1) Epigastric abdominal pain: Pt has abdominal carcinomatosis, will also treat with other causes with PPI therapeutic paracentesis 08/07/20 for almost 6 liters he had a lot of pain relief follow up on analysis: only 120WBC so does not meet criteria for SBP consider therapeutic tap in the future as needed (2) DVT of lower extremity, bilateral: DVTs are secondary to his advance cancer. 1mg/kg of lovenox BID (80mg BID). (3) Colon carcinoma metastatic to multiple sites: advanced colon ca with distant mets in numerous locations - liver, lungs, adrenal gland, etc. CT head without obvious mets last chemo was in June and he tolerated this poorly with chemo-induced pancytopenia requiring PRBCs, severe weakness contributing to his need for hospitalization in [place], ?neutropenic fever, etc. follows with oncology at [facility]. Dr Oconnor poor candidate for ongoing chemo but defer this ultimately to his oncologist. family agreeable to palliative care consult, sister states they are working home caregivers to have pt come home on hospice eventually plan for SNF on 08/09 (4) Peritoneal carcinomatosis: as noted on CT doubt SBP given clinical presentation. therapeutic paracentesis today for almost 6 liters, feels better (5) Lower extremity edema: 2nd to DVTs and severe hypoalbuminemia. (6) Abnormal LFTs: 2nd to liver mets. no signs of hepatic encephalopathy. (7) Candidiasis of mouth and esophagus: start magic mouthwash q6h swish/spit (8) Essential (primary) hypertension: hold lasix cont metoprolol with appropriate hold parameters (9) Severe protein-calorie malnutrition: 2nd to advanced colon cancer (10) Hiatal hernia: moderate, as seen on CT today. suspect that he likely has element of ROSAS, gastritis, etc. (11) DVT prophylaxis: has DVTs of b/l LEs lovenox 80mg BID Mary Liriano, sister, updated extensively by phone by prior hospitalist sister requesting that pt not return to [facility] and instead be placed in SNF in [place] or [facility]; patient and his family are from [facility] working on placement, he is stable for discharge once SNF is secured Admission and Anticipated Discharge Date Admission Date: August 05, 2020 Subjective patient is doing fine, resting in bed, appetite is very poor he is hopeful about going to SNF on 08/09 he is tearful, says he is going to miss everyone here Review of Systems Review of Systems: All systems reviewed & are unremarkable except as noted in Subjective Constitutional: + fatigue and + weakness; no fever Respiratory: no cough and no dyspnea Cardiovascular: no chest pain Gastrointestinal: + diarrhea/loose stools; no abdominal pain, no nausea, no vomiting and no constipation Physical Exam Constitutional: WD/WN, vitals as above Neck: trachea midline, no thyromegaly Respiratory: normal respiratory effort, lungs clear to auscultation Cardiovascular: RRR, no murmur, no edema Gastrointestinal (Abdomen): Inspection/Auscultation: + abdomen distended and normal bowel sounds Percussion/Palpation: abdomen soft and + ascites; abdomen nontender Musculoskeletal: Head/Neck/Chest: normocephalic, head atraumatic and neck supple Extremities: extremities normal to inspection, + abnormal strength (generalized weakness) and + muscle atrophy Skin: + jaundice Neurologic: patellar DTR's 2+ bilat, sensation intact and PERRL, EOMI, accommodation nl, no face palsy, no dysarthria Psychiatric: A+Ox3, euthymic affect Lymphatic: no cervical or axillary lymphadenopathy Results & Data Results & Data ([facility]) Vital Signs (Past 12 Hours) Vital Signs Temp Pulse Resp BP Pulse Ox 08/08/20 15:04 36.7 C 93 H 18 104/71 96 08/08/20 11:27 36.7 C 88 18 125/70 94 08/08/20 07:58 36.7 C 93 H 19 102/67 94 Laboratory Results Laboratory Results - last 24 hr 08/08/20 08/08/20 06:26 06:26 WBC 11.17 H RBC 3.66 L Hgb 10.6 L Hct 33.9 L MCV 92.6 MCH 29.0 MCHC 31.3 L RDW Std Deviation 65.8 H RDW Coeff of Lucy 20.1 H Plt Count 133 MPV 9.6 Creatinine 0.44 L Est Cr Clr Drug Dosing 169.6 Est GFR ( Amer) 139.9 Est GFR (Non-Af Amer) 120.7 Medications Administered Current Inpatient Medications Nystatin 30 ml/ Dexamethasone 3.75 mg/ Diphenhydramine HCl 300 mg/ Sucrose 45 ml/Microcrystalline Cellulose 45 ml/ BARCODE IDENTIFIER 1 ea 0 ml PO Q6H [facility] Stop: 09/04/20 17:29 Last Admin: 08/08/20 11:29 Dose: 5 ml Documented by: Enoxaparin Sodium (Enoxaparin 80 Mg/0.8 Ml Syr) 70 mg SQ Q12 [facility] Stop: 09/07/20 20:59 Heparin Sodium (Porcine) (Heparin 100 Unit/Ml 5ml Flush) 5 ml FLUSH PRN PRN PRN Reason: Flush Stop: 09/05/20 02:31 Last Admin: 08/07/20 16:51 Dose: 5 ml Documented by: Metoprolol Succinate (Metoprolol Succ 25mg Ext Rel Tab) 25 mg PO QAOK [facility] [place] [facility] Stop: 09/05/20 08:59 Last Admin: 08/08/20 08:02 Dose: 25 mg Documented by: Morphine Sulfate (Morphine Sulfate 2 Mg/Ml Carp) 2 mg IV Q4H PRN PRN Reason: Pain Stop: 08/19/20 16:41 Last Admin: 08/07/20 00:05 Dose: 2 mg Documented by: Multivitamins (Multivitamin Tab) 1 tab PO QAOK [facility] [place] Stop: 09/05/20 08:59 Last Admin: 08/08/20 08:02 Dose: 1 tab Documented by: Ondansetron HCl (Ondansetron Inj 2 Mg/Ml 2 Ml Vial) 4 mg IV Q6H PRN PRN Reason: Nausea Stop: 09/04/20 16:41 Pantoprazole Sodium (Pantoprazole 40 Mg Tab) 40 mg PO BID [facility] Stop: 09/04/20 20:59 Last Admin: 08/08/20 08:03 Dose: 40 mg Documented by: Sucralfate (Sucralfate 1 Gm/10 Ml Udc) 1 gm PO QID [facility] Stop: 09/04/20 20:59 Last Admin: 08/08/20 14:12 Dose: 1 gm Documented by: Vitamin D (Cholecalciferol 1,000 Units 25 Mcg Tab) 2,000 units PO QAM [facility] Stop: 09/05/20 08:59 Last Admin: 08/08/20 08:03 Dose: 2,000 units Documented by: PG Care Time/CCT Total # of Minutes Spent Total Time Spent with Patient: Total time spent is greater than 50% in c oordination of care (as documented) at patient's floor/unit and/or counseling patient: Coding Level of Care Code 00261 Subseq Hosp Care Lvl 2 Diagnoses Epigastric abdominal pain R10.13 DVT of lower extremity, bilateral I82.403 Affected thrombotic vein of extremity: unspecified vein of extremity Chronicity: acute Colon carcinoma metastatic to multiple sites C18.9 Peritoneal carcinomatosis C78.6 Lower extremity edema R60.0 Abnormal LFTs R94.5 Candidiasis of mouth and esophagus B37.81; B37.0 Essential (primary) hypertension I10 Severe protein-calorie malnutrition E43 Hiatal hernia K44.9 DVT prophylaxis Z29.9 (1) DVT of lower extremity, bilateral Affected thrombotic vein of extremity: unspecified vein of extremity Chronicity: acute Qualified Code(s): I82.403 - Acute embolism and thrombosis of unspecified deep veins of lower extremity, bilateral
[2020-08-08] MEDS: HEPARIN 100 UNIT/ML 5ML FLUSH FLUSH PRN (21:17)
[2020-08-09] MEDS: MULTIVITAMIN TAB PO SCH (07:53)
[2020-08-09] MEDS: ENOXAPARIN 80 MG/0.8 ML SYR SQ SCH ×2 (07:54→19:43)
[2020-08-09] MEDS: SUCRALFATE 1 GM/10 ML UDC PO SCH ×5 (07:54→19:44)
[2020-08-09] MEDS: METOPROLOL SUCC 25MG EXT REL TAB PO SCH (07:54)
[2020-08-09] MEDS: CHOLECALCIFEROL 1,000 UNITS 25 MCG TAB PO SCH (07:55)
[2020-08-09] MEDS: PANTOprazole 40 MG TAB PO SCH ×2 (08:52→19:42)
[2020-08-10] MEDS: ENOXAPARIN 80 MG/0.8 ML SYR SQ SCH ×2 (08:46→21:32)
[2020-08-10] MEDS: SUCRALFATE 1 GM/10 ML UDC PO SCH ×4 (08:46→21:32)
[2020-08-10] MEDS: PANTOprazole 40 MG TAB PO SCH ×2 (08:47→21:32)
[2020-08-10] MEDS: METOPROLOL SUCC 25MG EXT REL TAB PO SCH (08:47)
[2020-08-10] MEDS: CHOLECALCIFEROL 1,000 UNITS 25 MCG TAB PO SCH (08:47)
[2020-08-10] MEDS: MULTIVITAMIN TAB PO SCH (08:47)
--- NOTE | 2020-08-10 14:46 | Hospitalist Progress Note ---
Date of Service August 09, 2020 Assessment & Plan (1) Epigastric abdominal pain: Pt has abdominal carcinomatosis, will also treat with other causes with PPI therapeutic paracentesis 08/07/20 for almost 6 liters he had a lot of pain relief follow up on analysis: only 120WBC so does not meet criteria for SBP consider therapeutic tap in the future as needed no need for tap today (2) DVT of lower extremity, bilateral: DVTs are secondary to his advance cancer. 1mg/kg of lovenox BID (80mg BID). continue this on discharge (3) Colon carcinoma metastatic to multiple sites: advanced colon ca with distant mets in numerous locations - liver, lungs, adrenal gland, etc. CT head without obvious mets last chemo was in June and he tolerated this poorly with chemo-induced pancytopenia requiring PRBCs, severe weakness contributing to his need for hospitalization in [place], ?neutropenic fever, etc. follows with oncology at [facility]. Dr Oconnor poor candidate for ongoing chemo but defer this ultimately to his oncologist. family agreeable to palliative care consult, sister states they are working home caregivers to have pt come home on hospice eventually plan for SNF on 08/09 - cancelled due to positive COVID test prior to transfer cannot go to SNF until 08/19 family might be able to take him home prior to that (4) Lab test positive for detection of COVID-19 virus: unclear how/when he contracted COVID reviewed records, he had a negative test on admission on 08/05 spoke with [facility], he had a negative test at their facility on 07/31 he was only at [facility] one day prior to his transfer to [facility] at this time, he has no fever, no dyspnea will monitor for any developing symptoms cannot go to SNF for 10 days from positive test (5) Peritoneal carcinomatosis: as noted on CT doubt SBP given clinical presentation. therapeutic paracentesis 08/07 for almost 6 liters, feels better (6) Lower extremity edema: 2nd to DVTs and severe hypoalbuminemia. (7) Abnormal LFTs: 2nd to liver mets. no signs of hepatic encephalopathy. (8) Candidiasis of mouth and esophagus: start magic mouthwash q6h swish/spit (9) Essential (primary) hypertension: hold lasix cont metoprolol with appropriate hold parameters (10) Severe protein-calorie malnutrition: 2nd to advanced colon cancer (11) Hiatal hernia: moderate, as seen on CT today. suspect that he likely has element of ROSAS, gastritis, etc. (12) DVT prophylaxis: has DVTs of b/l LEs lovenox 80mg BID Mary Liriano, sister, updated extensively by phone by prior hospitalist sister requesting that pt not return to [facility] and instead be placed in SNF in [place] or [facility]; patient and his family are from [facility] working on placement, he is stable for discharge once SNF is secured Admission and Anticipated Discharge Date Admission Date: August 05, 2020 Subjective patient doing well, he was OOB to chair, RN said he is only one assist discussed the positive COVID test yesterday, he has no symptoms of COVID no dyspnea, no cough, no fever, unclear where he contracted the virus no labs today discussed that no SNF will take him for 10 days from positive test he says his family is working on taking him home with hospice Review of Systems Review of Systems: All systems reviewed & are unremarkable except as noted in Subjective Constitutional: + fatigue and + weakness; no fever, no chills and no sweats Respiratory: no cough and no dyspnea Cardiovascular: no chest pain Gastrointestinal: + early satiety (poor appetite); no abdominal pain, no nausea, no vomiting, no constipation and no diarrhea/loose stools Physical Exam Constitutional: WD/WN, vitals as above Neck: trachea midline, no thyromegaly Respiratory: normal respiratory effort, lungs clear to auscultation Cardiovascular: RRR, no murmur, no edema Gastrointestinal (Abdomen): Inspection/Auscultation: + abdomen distended and normal bowel sounds Percussion/Palpation: abdomen soft and + ascites; abdomen nontender Musculoskeletal: Head/Neck/Chest: normocephalic, head atraumatic and neck supple Extremities: extremities normal to inspection, + abnormal strength (generalized weakness) and + muscle atrophy Skin: + jaundice Neurologic: patellar DTR's 2+ bilat, sensation intact and PERRL, EOMI, accommodation nl, no face palsy, no dysarthria Psychiatric: A+Ox3, euthymic affect Lymphatic: no cervical or axillary lymphadenopathy Results & Data Results & Data ([facility]) Vital Signs (Past 12 Hours) Vital Signs Temp Pulse Resp BP Pulse Ox 08/10/20 08:43 91 H 102/69 08/10/20 06:17 36.7 C 95 H 18 101/71 94 Medications Administered Current Inpatient Medications Nystatin 30 ml/ Dexamethasone 3.75 mg/ Diphenhydramine HCl 300 mg/ Sucrose 45 ml/Microcrystalline Cellulose 45 ml/ BARCODE IDENTIFIER 1 ea 0 ml PO Q6H [facility] Stop: 09/04/20 17:29 Last Admin: 08/10/20 17:32 Dose: Not Given Documented by: Enoxaparin Sodium (Enoxaparin 80 Mg/0.8 Ml Syr) 70 mg SQ Q12 [facility] Stop: 09/07/20 20:59 Last Admin: 08/10/20 21:32 Dose: 70 mg Documented by: Heparin Sodium (Porcine) (Heparin 100 Unit/Ml 5ml Flush) 5 ml FLUSH PRN PRN PRN Reason: Flush Stop: 09/05/20 02:31 Last Admin: 08/08/20 21:17 Dose: 5 ml Documented by: Metoprolol Succinate (Metoprolol Succ 25mg Ext Rel Tab) 25 mg PO QAM [facility] Stop: 09/05/20 08:59 Last Admin: 08/10/20 08:47 Dose: 25 mg Documented by: Morphine Sulfate (Morphine Sulfate 2 Mg/Ml Carp) 2 mg IV Q4H PRN PRN Reason: Pain Stop: 08/19/20 16:41 Last Admin: 08/07/20 00:05 Dose: 2 mg Documented by: Multivitamins (Multivitamin Tab) 1 tab PO QAM [facility] Stop: 09/05/20 08:59 Last Admin: 08/10/20 08:47 Dose: 1 tab Documented by: Ondansetron HCl (Ondansetron Inj 2 Mg/Ml 2 Ml Vial) 4 mg IV Q6H PRN PRN Reason: Nausea Stop: 09/04/20 16:41 Pantoprazole Sodium (Pantoprazole 40 Mg Tab) 40 mg PO BID [facility] Stop: 09/04/20 20:59 Last Admin: 08/10/20 21:32 Dose: 40 mg Documented by: Sucralfate (Sucralfate 1 Gm/10 Ml Udc) 1 gm PO QID [facility] Stop: 09/04/20 20:59 Last Admin: 08/10/20 21:32 Dose: 1 gm Documented by: Vitamin D (Cholecalciferol 1,000 Units 25 Mcg Tab) 2,000 units PO QAM [facility] Stop: 09/05/20 08:59 Last Admin: 08/10/20 08:47 Dose: 2,000 units Documented by: PG Care Time/CCT Total # of Minutes Spent Total Time Spent with Patient: Total time spent is greater than 50% in coordination of care (as documented) at patient's floor/unit and/or counseling patient: Coding Level of Care Code 97270 Subseq Hosp Care Lvl 2 Diagnoses Epigastric abdominal pain R10.13 DVT of lower extremity, bilateral I82.403 Affected thrombotic vein of extremity: unspecified vein of extremity Chronicity: acute Colon carcinoma metastatic to multiple sites C18.9 Lab test positive for detection of COVID-19 virus U07.1 Peritoneal carcinomatosis C78.6 Lower extremity edema R60.0 Abnormal LFTs R94.5 Candidiasis of mouth and esophagus B37.81; B37.0 Essential (primary) hypertension I10 Severe protein-calorie malnutrition E43 Hiatal hernia K44.9 DVT prophylaxis Z29.9 (1) DVT of lower extremity, bilateral Affected thrombotic vein of extremity: unspecified vein of extremity Chronicity: acute Qualified Code(s): I82.403 - Acute embolism and thrombosis of unspecified deep veins of lower extremity, bilateral
[2020-08-11] MEDS: HEPARIN 100 UNIT/ML 5ML FLUSH FLUSH PRN (05:19)
[2020-08-11 05:39] LABS: Hematocrit (blood only) 33.2 % (42-52); Mean Corpuscular Hemoglobin 30.1 pg (25-34); Mean Corpuscular Hgb Conc 33.1 g/dL (32-36); Mean Platelet Volume 9.9 fL (7.4-10.4); Platelet Count 181 K/uL (130-400); RDW Coefficient of Variation 20.3 % (11.5-14.5); RDW Standard Deviation 67.6 fL (36.4-46.3); Red Blood Count 3.65 M/uL (4.7-6.1); White Blood Count 18.35 K/uL (4.8-10.8)
[2020-08-11 06:02] LABS: Creatinine Clr Calc Pharmacy 146.3 ml/min; Est GFR (African American) 131.7; Est GFR (Non-African American) 113.6
[2020-08-11] MEDS: ENOXAPARIN 80 MG/0.8 ML SYR SQ SCH ×2 (08:14→21:18)
[2020-08-11] MEDS: PANTOprazole 40 MG TAB PO SCH ×3 (08:14→21:21)
[2020-08-11] MEDS: SUCRALFATE 1 GM/10 ML UDC PO SCH ×5 (08:14→21:21)
[2020-08-11] MEDS: METOPROLOL SUCC 25MG EXT REL TAB PO SCH (08:14)
[2020-08-11] MEDS: CHOLECALCIFEROL 1,000 UNITS 25 MCG TAB PO SCH (08:14)
[2020-08-11] MEDS: MULTIVITAMIN TAB PO SCH (08:14)
[2020-08-11 08:58] LABS: Appearance Urine Clear (Clear); Bacteria Urine Automated Negative (Negative); Blood Urine Negative (Negative); Color Urine Orange; Glucose Urine UA Negative (Negative); Ketones Urine Trace (Negative); Leukocyte Esterase Urine Trace (Negative); Nitrite Urine Positive (Negative); Protein Urine 1+ (Negative); RBC Urine Automated 0-4 /hpf (0-4); Specific Gravity Urine 1.021 (1.000-1.030); Urobilinogen Urine Positive (Negative); pH Urine 5.5 (4.5-7.5)
[2020-08-11 09:09] LABS: Bilirubin Urine 2+ (Negative)
--- NOTE | 2020-08-11 22:41 | Hospitalist Progress Note ---
Date of Service August 11, 2020 Assessment & Plan (1) Epigastric abdominal pain: Pt has abdominal carcinomatosis, will also treat with other causes with PPI therapeutic paracentesis 08/07/20 for almost 6 liters he had a lot of pain relief follow up on analysis: only 120WBC so does not meet criteria for SBP consider therapeutic tap in the future as needed no need for tap at this time, abdomen soft (2) DVT of lower extremity, bilateral: DVTs are secondary to his advance cancer. 1mg/kg of lovenox BID (80mg BID). continue this on discharge (3) Colon carcinoma metastatic to multiple sites: advanced colon ca with distant mets in numerous locations - liver, lungs, adrenal gland, etc. CT head without obvious mets last chemo was in June and he tolerated this poorly with chemo-induced pancytopenia requiring PRBCs, severe weakness contributing to his need for hospitalization in [place], ?neutropenic fever, etc. follows with oncology at [facility]. Dr Oconnor poor candidate for ongoing chemo family agreeable to palliative care consult, sister states they are working home caregivers to have pt come home on hospice eventually plan for SNF on 08/09 - cancelled due to positive COVID test prior to transfer cannot go to SNF until 08/19 discussed with his sister, see below (4) Lab test positive for detection of COVID-19 virus: unclear how/when he contracted COVID reviewed records, he had a negative test on admission on 08/05 spoke with [facility], he had a negative test at their facility on 07/31 he was only at [facility] for only 24 hours prior to his transfer to [facility] at this time, he has no fever, no dyspnea will monitor for any developing symptoms cannot go to SNF for 10 days from positive test d/w his sister on 08/11, she wants to take him home, however, her requirements to take him home are 14 days from positive test plus she would want him to test negative I explained that 10 days is the CDC recommendation and patients can test po sitive for weeks after infection, no longer standard practice to get negative test prior to discharge she feels this is necessary to keep her family members safe who would provide care to him with home hospice I warned her that we may need to send to SNF prior to that time and then he could eventually go home (5) Peritoneal carcinomatosis: as noted on CT doubt SBP given clinical presentation. therapeutic paracentesis 08/07 for almost 6 liters, feels better (6) Lower extremity edema: 2nd to DVTs and severe hypoalbuminemia. (7) Abnormal LFTs: 2nd to liver mets. no signs of hepatic encephalopathy. (8) Candidiasis of mouth and esophagus: start magic mouthwash q6h swish/spit (9) Essential (primary) hypertension: hold lasix cont metoprolol with appropriate hold parameters (10) Severe protein-calorie malnutrition: 2nd to advanced colon cancer (11) Hiatal hernia: moderate, as seen on CT today. suspect that he likely has element of ROSAS, gastritis, etc. (12) DVT prophylaxis: has DVTs of b/l LEs lovenox 80mg BID Mary Liriano, sister, updated extensively by phone by prior hospitalist sister requesting that pt not return to [facility] and instead be placed in SNF in [place] or [facility]; patient and his family are from [facility] working on placement, he is stable for discharge once SNF is secured Admission and Anticipated Discharge Date Admission Date: August 05, 2020 Subjective patient doing well, no hypoxia, no dyspnea, no fever eating okay no abdominal pain or distension to suggest worsening ascites long talk with his sister over the phone discussed the COVID diagnosis, unsure where/when he would have contracted the infection she wants to take him home with hospice eventually she is insisting on 14 days from positive test, I explained that CDC recommendation is 10 days she says she has older family members who will be sitting with him, helping him and she does not want them getting sick discussed going to SNF in the meantime, she would still want to wait at least 10 days, discussed that it may not be necessary she then said she wanted him to have a NEGATIVE COVID test prior to coming home, I explained that people can test positive for up to a month, even if they are not contagious she said she did not understand how someone can test positive and not be contagious she would feel more comfortable if he tested negative prior to coming home, would not want other family members to be put at risk I explained that this was unrealistic she was upset that she was not notified by me earlier of the positive test, I apologized and explained that I had been very busy the day before and the positive test was unexpected I meant to call her but ran out of time due to having several critical patients and numerous discharges she said she understood Review of Systems Review of Systems: All systems reviewed & are unremarkable except as noted in Subjective Constitutional: + fatigue and + weakness; no fever Respiratory: no cough and no dyspnea Cardiovascular: no chest pain Gastrointestinal: no abdominal pain, no nausea, no vomiting, no constipation and no diarrhea/loose stools Physical Exam Constitutional: WD/WN, vitals as above + thin and + frail appearing Neck: trachea midline, no thyromegaly Respiratory: normal respiratory effort, lungs clear to auscultation Cardiovascular: RRR, no murmur, no edema Gastrointestinal (Abdomen): Inspection/Auscultation: abdomen normal to inspection and normal bowel sounds Percussion/Palpation: abdomen soft; abdomen nontender Musculoskeletal: Head/Neck/Chest: normocephalic, head atraumatic and neck supple Extremities: extremities normal to inspection, + abnormal strength (generalized weakness) and + muscle atrophy Skin: + jaundice Neurologic: patellar DTR's 2+ bilat, sensation intact and PERRL, EOMI, accommodation nl, no face palsy, no dysarthria Psychiatric: A+Ox3, euthymic affect Lymphatic: no cervical or axillary lymphadenopathy Results & Data Results & Data ([facility]) Vital Signs (Past 12 Hours) Vital Signs Temp Pulse Resp BP Pulse Ox 08/11/20 15:59 36.4 C L 89 14 102/69 98 Laboratory Results Laboratory Results - last 24 hr 08/11/20 08/11/20 08/11/20 05:14 05:14 08:35 WBC 18.35 H RBC 3.65 L Hgb 11.0 L Hct 33.2 L MCV 91.0 MCH 30.1 MCHC 33.1 RDW Std Deviation 67.6 H RDW Coeff of Lucy 20.3 H Plt Count 181 MPV 9.9 Creatinine 0.51 L Est Cr Clr Drug Dosing 146.3 Est GFR ( Amer) 131.7 Est GFR (Non-Af Amer) 113.6 Urine Color [place] Urine Appearance Clear Urine pH 5.5 Ur Specific [place] 1.021 Urine Protein 1+ H Urine Glucose (UA) Negative Urine Ketones Trace H Urine Blood Negative Urine Nitrite Positive A Urine Bilirubin 2+ H Urine Urobilinogen Positive H Ur Leukocyte Esterase Trace H Urine WBC (Auto) 1-5 Urine RBC (Auto) 0-4 U Hyaline Cast (Auto) 5-10 H U Epithel Cells (Auto) 10-20 H Urine Bacteria (Auto) Negative Medications Administered Current Inpatient Medications Nystatin 30 ml/ Dexamethasone 3.75 mg/ Diphenhydramine HCl 300 mg/ Sucrose 45 ml/Microcrystalline Cellulose 45 ml/ BARCODE IDENTIFIER 1 ea 0 ml PO Q6H [facility] Stop: 09/04/20 17:29 Last Admin: 08/11/20 22:39 Dose: Not Given Documented by: Enoxaparin Sodium (Enoxaparin 80 Mg/0.8 Ml Syr) 70 mg SQ Q12 [facility] Stop: 09/07/20 20:59 Last Admin: 08/11/20 21:18 Dose: 70 mg Documented by: Heparin Sodium (Porcine) (Heparin 100 Unit/Ml 5ml Flush) 5 ml FLUSH PRN PRN PRN Reason: Flush Stop: 09/05/20 02:31 Last Admin: 08/11/20 05:19 Dose: 5 ml Documented by: Metoprolol Succinate (Metoprolol Succ 25mg Ext Rel Tab) 25 mg PO QAM [facility] Stop: 09/05/20 08:59 Last Admin: 08/11/20 08:14 Dose: 25 mg Documented by: Morphine Sulfate (Morphine Sulfate 2 Mg/Ml Carp) 2 mg IV Q4H PRN PRN Reason: Pain Stop: 08/19/20 16:41 Last Admin: 08/07/20 00:05 Dose: 2 mg Documented by: Multivitamins (Multivitamin Tab) [facility] Stop: 09/05/20 08:59 Last Admin: 08/11/20 08:14 Dose: 1 tab Documented by: Ondansetron HCl (Ondansetron Inj 2 Mg/Ml 2 Ml Vial) 4 mg IV Q6H PRN PRN Reason: Nausea Stop: 09/04/20 16:41 Last Admin: 08/11/20 12:17 Dose: 4 mg Documented by: Pantoprazole Sodium (Pantoprazole 40 Mg Tab) 40 mg PO BID [facility] Stop: 09/04/20 20:59 Last Admin: 08/11/20 21:21 Dose: Not Given Documented by: Sucralfate (Sucralfate 1 Gm/10 Ml Udc) 1 gm PO QID [facility] Stop: 05/10/21 20:59 Last Admin: 08/11/20 21:21 Dose: Not Given Documented by: Vitamin D (Cholecalciferol 1,000 Units 25 Mcg Tab) 2,000 units PO QAM [facility] Stop: 09/05/20 08:59 Last Admin: 08/11/20 08:14 Dose: 2,000 units Documented by: PG Care Time/CCT Total # of Minutes Spent Total Time Spent: 35 Total Time Spent with Patient: Total time spent is greater than 50% in coordination of care (as documented) at patient's floor/unit and/or counseling patient: 20 minutes on the phone with sister Prolonged Care Time Prolonged Care Time: No Coding Level of Care Code 48993 Subseq Hosp Care Lvl 3 Diagnoses Epigastric abdominal pain R10.13 DVT of lower extremity, bilateral I82.403 Affected thrombotic vein of extremity: unspecified vein of extremity Chronicity: acute Colon carcinoma metastatic to multiple sites C18.9 Lab test positive for detection of COVID-19 virus U07.1 Peritoneal carcinomatosis C78.6 Lower extremity edema R60.0 Abnormal LFTs R94.5 Candidiasis of mouth and esophagus B37.81; B37.0 Essential (primary) hypertension I10 Severe protein-calorie malnutrition E43 Hiatal hernia K44.9 DVT prophylaxis Z29.9 (1) DVT of lower extremity, bilateral Affected thrombotic vein of extremity: unspecified vein of extremity Chronicity: acute Qualified Code(s): I82.403 - Acute embolism and thrombosis of unspecified deep veins of lower extremity, bilateral
[2020-08-12] MEDS: SUCRALFATE 1 GM/10 ML UDC PO SCH ×4 (09:41→20:12)
[2020-08-12] MEDS: MULTIVITAMIN TAB PO SCH (09:41)
[2020-08-12] MEDS: CHOLECALCIFEROL 1,000 UNITS 25 MCG TAB PO SCH (09:41)
[2020-08-12] MEDS: PANTOprazole 40 MG TAB PO SCH ×2 (09:41→20:12)
[2020-08-12] MEDS: ENOXAPARIN 80 MG/0.8 ML SYR SQ SCH ×2 (09:41→20:11)
[2020-08-12] MEDS: METOPROLOL SUCC 25MG EXT REL TAB PO SCH (09:41)
--- NOTE | 2020-08-12 22:05 | Hospitalist Progress Note ---
Date of Service August 12, 2020 Assessment & Plan (1) Epigastric abdominal pain: Pt has abdominal carcinomatosis, will also treat with other causes with PPI therapeutic paracentesis 08/07/20 for almost 6 liters he had a lot of pain relief follow up on analysis: only 120WBC so does not meet criteria for SBP consider therapeutic tap in the future as needed no need for tap at this time, abdomen soft (2) DVT of lower extremity, bilateral: DVTs are secondary to his advance cancer. 1mg/kg of lovenox BID (80mg BID). continue this on discharge (3) Colon carcinoma metastatic to multiple sites: advanced colon ca with distant mets in numerous locations - liver, lungs, adrenal gland, etc. CT head without obvious mets last chemo was in June and he tolerated this poorly with chemo-induced pancytopenia requiring PRBCs, severe weakness contributing to his need for hospitalization in [place], ?neutropenic fever, etc. follows with oncology at [facility]. Dr Oconnor poor candidate for ongoing chemo, plan for home hospice family agreeable to palliative care consult, sister states they are working home caregivers to have pt come home on hospice eventually plan for SNF on 08/09 - cancelled due to positive COVID test prior to transfer see below (4) Lab test positive for detection of COVID-19 virus: unclear how/when he contracted COVID reviewed records, he had a negative test on admission on 08/05 spoke with [facility], he had a negative test at their facility on 07/31 he was only at [facility] one day prior to his transfer to [facility] at this time, he has no fever, no dyspnea will monitor for any developing symptoms cannot go to SNF until 10 days from positive test d/w his sister on 08/11, she wants to take him home, however, her requirements to take him home are 14 days from positive test plus she would want him to test negative I explained that 10 days is the CDC recommendation and patients can test positive for weeks after infection, no longer standard practice to get negative test prior to discharge she feels this is necessary to keep her family members safe who would provide care to him with home hospice I warned her that we may need to send to SNF prior to that time and then he could eventually go home case management will continue to work on disposition options (5) Peritoneal carcinomatosis: as noted on CT no signs of SBP, WBC < 200 therapeutic paracentesis 08/07 for almost 6 liters, feels better (6) Lower extremity edema: 2nd to DVTs and severe hypoalbuminemia. (7) Abnormal LFTs: 2nd to liver mets. no signs of hepatic encephalopathy. (8) Candidiasis of mouth and esophagus: start magic mouthwash q6h swish/spit (9) Essential (primary) hypertension: hold lasix cont metoprolol with appropriate hold parameters (10) Severe protein-calorie malnutrition: 2nd to advanced colon cancer (11) Hiatal hernia: moderate, as seen on CT today. suspect that he likely has element of ROSAS, gastritis, etc. (12) DVT prophylaxis: has DVTs of b/l LEs lovenox 80mg BID Admission and Anticipated Discharge Date Admission Date: August 05, 2020 Subjective patient doing well, no new issues still breathing well on room air, no fever eating okay Review of Systems Review of Systems: All systems reviewed & are unremarkable except as noted in Subjective Physical Exam Constitutional: WD/WN, vitals as above Neck: trachea midline, no thyromegaly Respiratory: normal respiratory effort, lungs clear to auscultation Cardiovascular: RRR, no murmur, no edema Gastrointestinal (Abdomen): Inspection/Auscultation: + abdomen distended and normal bowel sounds Percussion/Palpation: abdomen soft and + ascites; abdomen nontender Musculoskeletal: Head/Neck/Chest: normocephalic, head atraumatic and neck supple Extremities: extremities normal to inspection, + abnormal strength (generalized weakness) and + muscle atrophy Skin: + jaundice Neurologic: patellar DTR's 2+ bilat, sensation intact and PERRL, EOMI, accommodation nl, no face palsy, no dysarthria Psychiatric: A+Ox3, euthymic affect Lymphatic: no cervical or axillary lymphadenopathy Results & Data Results & Data ([facility]) Vital Signs (Past 12 Hours) Vital Signs Temp Pulse Pulse Resp BP Pulse Ox 08/12/20 20:12 36.7 C 89 16 104/71 97 08/12/20 14:49 36.4 C L 87 16 105/70 99 Medications Administered Current Inpatient Medications Nystatin 30 ml/ Dexamethasone 3.75 mg/ Diphenhydramine HCl 300 mg/ Sucrose 45 ml/Microcrystalline Cellulose 45 ml/ BARCODE IDENTIFIER 1 ea 0 ml PO Q6H [facility] Stop: 09/04/20 17:29 Last Admin: 08/12/20 17:15 Dose: Not Given Documented by: Enoxaparin Sodium (Enoxaparin 80 Mg/0.8 Ml Syr) 70 mg SQ Q12 [facility] Stop: 09/07/20 20:59 Last Admin: 08/12/20 20:11 Dose: 70 mg Documented by: Heparin Sodium (Porcine) (Heparin 100 Unit/Ml 5ml Flush) 5 ml FLUSH PRN PRN PRN Reason: Flush Stop: 09/05/20 02:31 Last Admin: 08/11/20 05:19 Dose: 5 ml Documented by: Metoprolol Succinate (Metoprolol Succ 25mg Ext Rel Tab) [facility] Stop: 09/05/20 08:59 Last Admin: 08/12/20 09:41 Dose: 25 mg Documented by: Morphine Sulfate (Morphine Sulfate 2 Mg/Ml Carp) 2 mg IV Q4H PRN PRN Reason: Pain Stop: 08/19/20 16:41 Last Admin: 08/07/20 00:05 Dose: 2 mg Documented by: Multivitamins (Multivitamin Tab) [facility] Stop: 09/05/20 08:59 Last Admin: 08/12/20 09:41 Dose: 1 tab Documented by: Ondansetron HCl (Ondansetron Inj 2 Mg/Ml 2 Ml Vial) 4 mg IV Q6H PRN PRN Reason: Nausea Stop: 09/04/20 16:41 Last Admin: 08/11/20 12:17 Dose: 4 mg Documented by: Pantoprazole Sodium (Pantoprazole 40 Mg Tab) 40 mg PO BID [facility] Stop: 09/04/20 20:59 Last Admin: 08/12/20 20:12 Dose: Not Given Documented by: Sucralfate (Sucralfate 1 Gm/10 Ml Udc) 1 gm PO QID [facility] Stop: 09/04/20 20:59 Last Admin: 08/12/20 20:12 Dose: Not Given Documented by: Vitamin D (Cholecalciferol 1,000 Units 25 Mcg Tab) 2,000 units PO QAM [facility] Stop: 09/05/20 08:59 Last Admin: 08/12/20 09:41 Dose: 2,000 units Documented by: PG Care Time/CCT Total # of Minutes Spent Total Time Spent with Patient: Total time spent is greater than 50% in coordination of care (as documented) at patient's floor/unit and/or counseling patient: Coding Level of Care Code 81633 Subseq Hosp Care Lvl 2 Diagnoses Epigastric abdominal pain R10.13 DVT of lower extremity, bilateral I82.403 Affected thrombotic vein of extremity: unspecified vein of extremity Chronicity: acute Colon carcinoma metastatic to multiple sites C18.9 Lab test positive for detection of COVID-19 virus U07.1 Peritoneal carcinomatosis C78.6 Lower extremity edema R60.0 Abnormal LFTs R94.5 Candidiasis of mouth and esophagus B37.81; B37.0 Essential (primary) hypertension I10 Severe protein-calorie malnutrition E43 Hiatal hernia K44.9 DVT prophylaxis Z29.9 (1) DVT of lower extremity, bilateral Affected thrombotic vein of extremity: unspecified vein of extremity Chronicity: acute Qualified Code(s): I82.403 - Acute embolism and thrombosis of unspecified deep veins of lower extremity, bilateral
[2020-08-13] MEDS: SUCRALFATE 1 GM/10 ML UDC PO SCH ×4 (09:29→20:25)
[2020-08-13] MEDS: PANTOprazole 40 MG TAB PO SCH ×2 (09:30→20:25)
[2020-08-13] MEDS: METOPROLOL SUCC 25MG EXT REL TAB PO SCH (09:30)
[2020-08-13] MEDS: CHOLECALCIFEROL 1,000 UNITS 25 MCG TAB PO SCH (09:30)
[2020-08-13] MEDS: MULTIVITAMIN TAB PO SCH (09:31)
[2020-08-13] MEDS: ENOXAPARIN 80 MG/0.8 ML SYR SQ SCH ×2 (10:46→20:25)
[2020-08-13] MEDS: HEPARIN 100 UNIT/ML 5ML FLUSH FLUSH PRN (10:47)
--- NOTE | 2020-08-13 15:17 | Hospitalist Progress Note ---
Date of Service August 13, 2020 Assessment & Plan (1) Epigastric abdominal pain: Pt has abdominal carcinomatosis, will also treat with other causes with PPI therapeutic paracentesis 08/07/20 for almost 6 liters he had a lot of pain relief follow up on analysis: only 120WBC so does not meet criteria for SBP consider therapeutic tap in the future as needed no need for tap at this time, abdomen remains soft although he has ascites (2) DVT of lower extremity, bilateral: DVTs are secondary to his advance cancer. 1mg/kg of lovenox BID (80mg BID). continue this on discharge (3) Colon carcinoma metastatic to multiple sites: advanced colon ca with distant mets in numerous locations - liver, lungs, adrenal gland, etc. CT head without obvious mets last chemo was in June and he tolerated this poorly with chemo-induced pancytopenia requiring PRBCs, severe weakness contributing to his need for hospitalization in [place], ?neutropenic fever, etc. follows with oncology at [facility] (formerly [facility]). Dr Oconnor poor candidate for ongoing chemo, plan for home hospice family agreeable to palliative care consult, sister states they are working home caregivers to have pt come home on hospice eventually plan for SNF on 08/09 - cancelled due to positive COVID test prior to transfer see below (4) Lab test positive for detection of COVID-19 virus: unclear how/when he contracted COVID reviewed records, he had a negative test on admission on 08/05 spoke with [facility], he had a negative test at their facility on 07/31 he was only at [facility] one day prior to his transfer to [facility] at this time, he has no fever, no dyspnea will monitor for any developing symptoms cannot go to SNF until 10 days from positive test d/w his sister on 08/11, she wants to take him home, however, her requirements to take him home are 14 days from positive test plus she would want him to test negative I explained that 10 days is the CDC recommendation and patients can test positive for weeks after infection, no longer standard practice to get negative test prior to discharge she feels this is necessary to keep her family members safe who would provide care to him with home hospice I warned her that we may need to send to SNF prior to that time and then he could eventually go home case management will continue to work on disposition options most logical plan would be SNF if they will accept him, then home with hospice once family feels more comfortable (5) Peritoneal carcinomatosis: as noted on CT no signs of SBP, WBC < 200 therapeutic paracentesis 08/07 for almost 6 liters, feels better (6) Lower extremity edema: 2nd to DVTs and severe hypoalbuminemia. (7) Abnormal LFTs: 2nd to liver mets. no signs of hepatic encephalopathy. (8) Candidiasis of mouth and esophagus: start magic mouthwash q6h swish/spit (9) Essential (primary) hypertension: hold lasix cont metoprolol with appropriate hold parameters BP low normal (10) Severe protein-calorie malnutrition: 2nd to advanced colon cancer (11) Hiatal hernia: moderate, as seen on CT today. suspect that he likely has element of ROSAS, gastritis, etc. (12) DVT prophylaxis: has DVTs of b/l LEs lovenox 80mg BID Admission and Anticipated Discharge Date Admission Date: August 05, 2020 Subjective patient doing okay today, still with poor appetite awaiting discharge plan, either waits here until he can go home or to SNF first eventually home with hospice abdomen feels okay, not tense or painful, no need for therapeutic tap no labs today Review of Systems Review of Systems: All systems reviewed & are unremarkable except as noted in Subjective Psychiatric: + depression Physical Exam Constitutional: WD/WN, vitals as above + thin and + frail appearing Neck: trachea midline, no thyromegaly Respiratory: normal respiratory effort, lungs clear to auscultation Cardiovascular: RRR, no murmur, no edema Gastrointestinal (Abdomen): Inspection/Auscultation: abdomen normal to inspection and normal bowel sounds Percussion/Palpation: abdomen soft and + ascites; abdomen nontender Musculoskeletal: Head/Neck/Chest: normocephalic, head atraumatic and neck supple Extremities: extremities normal to inspection, + abnormal strength (generalized weakness) and + muscle atrophy Skin: + jaundice Neurologic: patellar DTR's 2+ bilat, sensation intact and PERRL, EOMI, accommodation nl, no face palsy, no dysarthria Psychiatric: Orientation: alert and oriented x 3 Mood: + depressed mood Lymphatic: no cervical or axillary lymphadenopathy Results & Data Results & Data ([facility]) Vital Signs (Past 12 Hours) Vital Signs Temp Pulse Resp BP Pulse Ox 08/13/20 15:02 36.5 C 90 16 107/74 95 08/13/20 08:33 36.5 C 94 H 16 101/71 96 08/13/20 06:19 36.3 C L 90 20 112/77 98 Medications Administered Current Inpatient Medications Nystatin 30 ml/ Dexamethasone 3.75 mg/ Diphenhydramine HCl 300 mg/ Sucrose 45 ml/Microcrystalline Cellulose 45 ml/ BARCODE IDENTIFIER 1 ea 0 ml PO Q6H [facility] Stop: 09/04/20 17:29 Last Admin: 08/13/20 10:45 Dose: Not Given Documented by: Enoxaparin Sodium (Enoxaparin 80 Mg/0.8 Ml Syr) 70 mg SQ Q12 [facility] Stop: 09/07/20 20:59 Last Admin: 08/13/20 10:46 Dose: 70 mg Documented by: Heparin Sodium (Porcine) (Heparin 100 Unit/Ml 5ml Flush) 5 ml FLUSH PRN PRN PRN Reason: Flush Stop: 09/05/20 02:31 Last Admin: 08/13/20 10:47 Dose: 5 ml Documented by: Metoprolol Succinate (Metoprolol Succ 25mg Ext Rel Tab) 25 mg PO QAM [facility] Stop: 09/05/20 08:59 Last Admin: 08/13/20 09:30 Dose: 25 mg Documented by: Morphine Sulfate (Morphine Sulfate 2 Mg/Ml Carp) 2 mg IV Q4H PRN PRN Reason: Pain Stop: 08/19/20 16:41 Last Admin: 08/07/20 00:05 Dose: 2 mg Documented by: Multivitamins ([facility]ivitamin Tab) [facility] Stop: 09/05/20 08:59 Last Admin: 08/13/20 09:31 Dose: 1 tab Documented by: Ondansetron HCl (Ondansetron Inj 2 Mg/Ml 2 Ml Vial) 4 mg IV Q6H PRN PRN Reason: Nausea Stop: 09/04/20 16:41 Last Admin: 08/11/20 12:17 Dose: 4 mg Documented by: Pantoprazole Sodium (Pantoprazole 40 Mg Tab) 40 mg PO BID [facility] Stop: 09/04/20 20:59 Last Admin: 08/13/20 09:30 Dose: 40 mg Documented by: Sucralfate (Sucralfate 1 Gm/10 Ml Udc) 1 gm PO QID [facility] Stop: 09/04/20 20:59 Last Admin: 08/13/20 13:14 Dose: 1 gm Documented by: Vitamin D (Cholecalciferol 1,000 Units 25 Mcg Tab) 2,000 units PO QAM [facility] Stop: 09/05/20 08:59 Last Admin: 08/13/20 09:30 Dose: 2,000 units Documented by: PG Care Time/CCT Total # of Minutes Spent Total Time Spent with Patient: Total time spent is greater than 50% in coordination of care (as documented) at patient's floor/unit and/or counseling patient: Coding Level of Care Code 66161 Subseq Hosp Care Lvl 2 Diagnoses Epigastric abdominal pain R10.13 DVT of lower extremity, bilateral I82.403 Affected thrombotic vein of extremity: unspecified vein of extremity Chronicity: acute Colon carcinoma metastatic to multiple sites C18.9 Lab test positive for detection of COVID-19 virus U07.1 Peritoneal carcinomatosis C78.6 Lower extremity edema R60.0 Abnormal LFTs R94.5 Candidiasis of mouth and esophagus B37.81; B37.0 Essential (primary) hypertension I10 Severe protein-calorie malnutrition E43 Hiatal hernia K44.9 DVT prophylaxis Z29.9 (1) DVT of lower extremity, bilateral Affected thrombotic vein of extremity: unspecified vein of extremity Chronicity: acute Qualified Code(s): I82.403 - Acute embolism and thrombosis of unspecified deep veins of lower extremity, bilateral
[2020-08-14 06:27] LABS: Hematocrit (blood only) 33.8 % (42-52); Mean Corpuscular Hemoglobin 29.4 pg (25-34); Mean Corpuscular Hgb Conc 32.5 g/dL (32-36); Mean Corpuscular Volume 90.4 fL (80-100); Mean Platelet Volume 9.8 fL (7.4-10.4); Platelet Count 203 K/uL (130-400); RDW Coefficient of Variation 19.5 % (11.5-14.5); RDW Standard Deviation 64.6 fL (36.4-46.3); Red Blood Count 3.74 M/uL (4.7-6.1); White Blood Count 15.34 K/uL (4.8-10.8)
[2020-08-14 06:54] LABS: Creatinine Clr Calc Pharmacy 143.5 ml/min; Est GFR (African American) 130.6; Est GFR (Non-African American) 112.7
[2020-08-14] MEDS: CHOLECALCIFEROL 1,000 UNITS 25 MCG TAB PO SCH (08:37)
[2020-08-14] MEDS: SUCRALFATE 1 GM/10 ML UDC PO SCH ×4 (08:37→22:00)
[2020-08-14] MEDS: METOPROLOL SUCC 25MG EXT REL TAB PO SCH (08:37)
[2020-08-14] MEDS: MULTIVITAMIN TAB PO SCH (08:37)
[2020-08-14] MEDS: PANTOprazole 40 MG TAB PO SCH ×2 (08:38→22:00)
[2020-08-14] MEDS: ENOXAPARIN 80 MG/0.8 ML SYR SQ SCH ×2 (08:38→22:00)
--- NOTE | 2020-08-14 18:12 | Hospitalist Progress Note ---
Date of Service August 14, 2020 Assessment & Plan (1) Epigastric abdominal pain: Pt has abdominal carcinomatosis, will also treat with PPI In case of gastritis or PUD therapeutic paracentesis 08/07/20 for almost 6 liters he had a lot of pain relief Which continues follow up on analysis: only 120WBC so does not meet criteria for SBP consider therapeutic tap in the future as needed For pain no need for tap at this time, abdomen remains soft although he has ascites (2) DVT of lower extremity, bilateral: DVTs are secondary to his advance cancer. Continue 1mg/kg of lovenox BID (70mg BID). continue this on discharge (3) Colon carcinoma metastatic to multiple sites: advanced colon ca with distant mets in numerous locations - liver, lungs, adrenal gland, etc. CT head without obvious mets last chemo was in June and he tolerated this poorly with chemo-induced pancytopenia requiring PRBCs, severe weakness contributing to his need for hospitalization in [place], ?neutropenic fever, etc. follows with oncology at [facility]. Dr Oconnor poor candidate for ongoing chemo, plan for home hospice family agreeable to palliative care consult, sister states they are working home caregivers to have pt come home on hospice eventually plan for SNF on 08/09 - cancelled due to positive COVID test prior to transfer see below (4) Lab test positive for detection of COVID-19 virus: unclear how/when he contracted COVID reviewed records, he had a negative test on admission on 08/05 spoke with [facility], he had a negative test at their facility on 07/31 he was only at [facility] one day prior to his transfer to [facility] at this time, he has no fever, no dyspnea, No hypoxia or any other symptoms will monitor for any developing symptoms cannot go to SNF until 10 days from positive test Which would be on 08/19 d/w his sister on 08/11, she wants to take him home, however, her requirements to take him home are 14 days from positive test plus she would want him to test negative I explained that 10 days is the CDC recommendation and patients can test positive for weeks after infection, no longer standard practice to get negative test prior to discharge she feels this is necessary to keep her family members safe who would provide care to him with home hospice I warned her that we may need to send to SNF prior to that time and then he could eventually go home case management will continue to work on disposition options most logical plan would be SNF if they will accept him, then home with hospice once family feels more comfortable (5) Peritoneal carcinomatosis: as noted on CT no signs of SBP, WBC < 200 therapeutic paracentesis 08/07 for almost 6 liters, feels better (6) Lower extremity edema: 2nd to DVTs and severe hypoalbuminemia. (7) Abnormal LFTs: 2nd to liver mets. no signs of hepatic encephalopathy. No need to follow any further (8) Candidiasis of mouth and esophagus: Continue magic mouthwash q6h swish/spit (9) Essential (primary) hypertension: Continue to hold lasix cont metoprolol with appropriate hold parameters BP low normal (10) Severe protein-calorie malnutrition: 2nd to advanced colon cancer (11) Hiatal hernia: moderate, as seen on CT today. suspect that he likely has element of ROSAS, gastritis, etc. (12) DVT prophylaxis: has DVTs of b/l LEs lovenox 70mg BID Disposition-continued stay until can be accepted at SNF 10 days after diagnosis of Covid. PT/OT consultations are placed and he will need reevaluation for an authorization for SNF Admission and Anticipated Discharge Date Admission Date: August 05, 2020 Subjective Patient reports "I feel good" when asked how he is feeling today. He reports a little bit of abdominal distention but no abdominal pain. No nausea. He is eating somewhat. He denies any chest pain or shortness of breath. No cough. Denies headaches, no fevers or chills, no sore throat, no loss of taste or smell. Denies bleeding from anywhere and is moving his bowels. Review of Systems Review of Systems: All systems reviewed & are unremarkable except as noted in HPI & below Physical Exam Constitutional: WD/WN, vitals as above Eyes: + scleral abnormality (Mild icterus) ENMT: external ear and nose normal, oropharynx normal Neck: trachea midline, no thyromegaly Respiratory: normal respiratory effort, lungs clear to auscultation Cardiovascular: Rate/Rhythm: regular rate and regular rhythm Heart Sounds: no murmur Extremities: + edema (2+ pitting edema of the legs bilaterally) Chest (Breasts): Chest: normal inspection of chest Gastrointestinal (Abdomen): normal bowel sounds, soft, nontender, no hepatosplenomegaly Inspection/Auscultation: + abdomen distended (Mild) Musculoskeletal: Extremities: no cyanosis and no clubbing Skin: no rashes, warm and dry + jaundice Neurologic: moves all extremities and awake; no focal motor deficits Psychiatric: A+Ox3, euthymic affect Results & Data Results & Data ([facility]) Vital Signs (Past 12 Hours) Vital Signs Temp Pulse Resp BP Pulse Ox 08/14/20 08:36 36.3 C L 94 H 16 106/74 98 Laboratory Results 08/14/20 08/14/20 Range/Units 06:08 06:08 WBC 15.34 H (4.8-10.8) K/uL RBC 3.74 L (4.7-6.1) M/uL Hgb 11.0 L (14.0-18.0) g/dL Hct 33.8 L (42-52) % MCV 90.4 (80-100) fL MCH 29.4 (25-34) pg MCHC 32.5 (32-36) g/dL RDW Std Deviation 64.6 H (36.4-46.3) fL RDW Coeff of Lucy 19.5 H (11.5-14.5) % Plt Count 203 (130-400) K/uL MPV 9.8 (7.4-10.4) fL Creatinine 0.52 L (0.6-1.4) mg/dl Est Cr Clr Drug Dosing 143.5 ml/min Est GFR ( Amer) 130.6 Est GFR (Non-Af Amer) 112.7 PG Care Time/CCT Total # of Minutes Spent Total Time Spent with Patient: Total time spent is greater than 50% in coordination of care (as documented) at patient's floor/unit and/or counseling patient: Coding Level of Care Code 12824 Subseq Hosp Care Lvl 1 Diagnoses Epigastric abdominal pain R10.13 DVT of lower extremity, bilateral I82.403 Affected thrombotic vein of extremity: unspecified vein of extremity Chronicity: acute Colon carcinoma metastatic to multiple sites C18.9 Lab test positive for detection of COVID-19 virus U07.1 Peritoneal carcinomatosis C78.6 Lower extremity edema R60.0 Abnormal LFTs R94.5 Candidiasis of mouth and esophagus B37.81; B37.0 Essential (primary) hypertension I10 Severe protein-calorie malnutrition E43 Hiatal hernia K44.9 DVT prophylaxis Z29.9 (1) DVT of lower extremity, bilateral Affected thrombotic vein of extremity: unspecified vein of extremity Chronicity: acute Qualified Code(s): I82.403 - Acute embolism and thrombosis of unspecified deep veins of lower extremity, bilateral
[2020-08-15] MEDS: ENOXAPARIN 80 MG/0.8 ML SYR SQ SCH ×2 (08:31→20:14)
[2020-08-15] MEDS: SUCRALFATE 1 GM/10 ML UDC PO SCH ×2 (08:31→12:28)
[2020-08-15] MEDS: MULTIVITAMIN TAB PO SCH (08:32)
[2020-08-15] MEDS: PANTOprazole 40 MG TAB PO SCH ×2 (08:32→20:14)
[2020-08-15] MEDS: METOPROLOL SUCC 25MG EXT REL TAB PO SCH (08:32)
[2020-08-15] MEDS: CHOLECALCIFEROL 1,000 UNITS 25 MCG TAB PO SCH (08:33)
--- NOTE | 2020-08-15 13:50 | Hospitalist Progress Note ---
Date of Service August 15, 2020 Assessment & Plan (1) Epigastric abdominal pain: Pt has abdominal carcinomatosis, will also treat with PPI In case of gastritis or PUD Patient request that the sucralfate be discontinued therapeutic paracentesis 08/07/20 for almost 6 liters he had a lot of pain relief And is still doing well, no abdominal pain follow up on analysis: only 120WBC so does not meet criteria for SBP consider therapeutic tap in the future as needed For pain no need for tap at this time, abdomen remains soft although he has ascites (2) DVT of lower extremity, bilateral: DVTs are secondary to his advance cancer. Continue 1mg/kg of lovenox BID (70mg BID). continue this on discharge Watch for bleeding (3) Colon carcinoma metastatic to multiple sites: advanced colon ca with distant mets in numerous locations - liver, lungs, adrenal gland, etc. CT head without obvious mets last chemo was in June and he tolerated this poorly with chemo-induced pancytopenia requiring PRBCs, severe weakness contributing to his need for hospitalization in [place], ?neutropenic fever, etc. follows with oncology at [facility]. Dr Oconnor poor candidate for ongoing chemo, plan for home hospice family agreeable to palliative care consult, sister states they are working home caregivers to have pt come home on hospice eventually plan for SNF on 08/09 - cancelled due to positive COVID test prior to transfer see below (4) Lab test positive for detection of COVID-19 virus: unclear how/when he contracted COVID reviewed records, he had a negative test on admission on 08/05 spoke with [facility], he had a negative test at their facility on 07/31 he was only at [facility] one day prior to his transfer to [facility] at this time, he has no fever, no dyspnea, No hypoxia or any other symptoms will monitor for any developing symptoms cannot go to SNF until 10 days from positive test Which would be on 08/19 d/w his sister on 08/11, she wants to take him home, however, her requirements to take him home are 14 days from positive test plus she would want him to test negative I explained that 10 days is the CDC recommendation and patients can test positive for weeks after infection, no longer standard practice to get negative test prior to discharge she feels this is necessary to keep her family members safe who would provide care to him with home hospice I warned her that we may need to send to SNF prior to that time and then he could eventually go home case management will continue to work on disposition options most logical plan would be SNF if they will accept him, then home with hospice once family feels more comfortable (5) Peritoneal carcinomatosis: as noted on CT no signs of SBP, WBC < 200 therapeutic paracentesis 08/07 for almost 6 liters, feels better (6) Lower extremity edema: 2nd to DVTs and severe hypoalbuminemia. (7) Abnormal LFTs: 2nd to liver mets. no signs of hepatic encephalopathy. No need to follow any further (8) Candidiasis of mouth and esophagus: Continue magic mouthwash q6h swish/spit X2-week course (9) Essential (primary) hypertension: Continue to hold lasix cont metoprolol with appropriate hold parameters BP low normal (10) Severe protein-calorie malnutrition: 2nd to advanced colon cancer (11) Hiatal hernia: moderate, as seen on CT suspect that he likely has element of ROSAS, gastritis, etc. Continue Protonix Discontinue sucralfate (12) DVT prophylaxis: has DVTs of b/l LEs lovenox 70mg BID Disposition-continued stay until can be accepted at SNF 10 days after diagnosis of Covid. PT/OT consultations are placed and he will need reevaluation for an authorization for SNF Admission and Anticipated Discharge Date Admission Date: August 05, 2020 Subjective Patient reports he is doing okay today. Denies any abdominal pain. He is eating and drinking. He feels extremely weak and does not feel like getting out of bed even to a chair. He denies any chest pain or shortness of breath. He did move his bowels a large amount today. Review of Systems Review of Systems: All systems reviewed & are unremarkable except as noted in HPI & below Denies headache, no fevers or chills, no cough, no shortness of breath Physical Exam Constitutional: WD/WN, vitals as above Eyes: + scleral abnormality (Mild icterus) Neck: trachea midline, no thyromegaly Respiratory: normal respiratory effort; no cough Auscultation: + rhonchi (Occasional upper airway that clear with cough); no crackles and no wheezes Cardiovascular: Rate/Rhythm: regular rate and regular rhythm Heart Sounds: no murmur Extremities: + edema (2+ pitting edema of the legs bilaterally) Chest (Breasts): Chest: normal inspection of chest Gastrointestinal (Abdomen): normal bowel sounds, soft, nontender, no hepatosplenomegaly Inspection/Auscultation: + abdomen distended (Mild) Musculoskeletal: Extremities: no cyanosis and no clubbing Skin: no rashes, warm and dry + jaundice Neurologic: moves all extremities and awake; no focal motor deficits Psychiatric: A+Ox3, euthymic affect Lymphatic: no lymphedema Results & Data Results & Data ([place]) Vital Signs (Past 12 Hours) Vital Signs Temp Pulse Resp BP Pulse Ox 08/15/20 06:01 36.4 C L 93 H 14 105/73 96 PG Care Time/CCT Total # of Minutes Spent Total Time Spent with Patient: Total time spent is greater than 50% in coordination of care (as documented) at patient's floor/unit and/or counseling patient: Coding Level of Care Code 68323 Subseq Hosp Care Lvl 1 Diagnoses Epigastric abdominal pain R10.13 DVT of lower extremity, bilateral I82.403 Affected thrombotic vein of extremity: unspecified vein of extremity Chronicity: acute Colon carcinoma metastatic to multiple sites C18.9 Lab test positive for detection of COVID-19 virus U07.1 Peritoneal carcinomatosis C78.6 Lower extremity edema R60.0 Abnormal LFTs R94.5 Candidiasis of mouth and esophagus B37.81; B37.0 Essential (primary) hypertension I10 Severe protein-calorie malnutrition E43 Hiatal hernia K44.9 DVT prophylaxis Z29.9 (1) DVT of lower extremity, bilateral Affected thrombotic vein of extremity: unspecified vein of extremity Chronicity: acute Qualified Code(s): I82.403 - Acute embolism and thrombosis of unspecified deep veins of lower extremity, bilateral
[2020-08-15] MEDS: MoRPHine SULFATE 2 MG/ML CARP IV PRN (20:13)
[2020-08-15] MEDS: HEPARIN 100 UNIT/ML 5ML FLUSH FLUSH PRN (20:32)
[2020-08-16] MEDS: ENOXAPARIN 80 MG/0.8 ML SYR SQ SCH ×2 (08:38→20:43)
[2020-08-16] MEDS: PANTOprazole 40 MG TAB PO SCH ×2 (08:40→20:44)
[2020-08-16] MEDS: MULTIVITAMIN TAB PO SCH (08:40)
[2020-08-16] MEDS: CHOLECALCIFEROL 1,000 UNITS 25 MCG TAB PO SCH (08:40)
[2020-08-16] MEDS: METOPROLOL SUCC 25MG EXT REL TAB PO SCH (08:40)
--- NOTE | 2020-08-16 18:46 | Hospitalist Progress Note ---
Date of Service August 16, 2020 Assessment & Plan (1) Epigastric abdominal pain: Pt has abdominal carcinomatosis, had tense ascites on admission as cause of pain which has since been improved with paracentesis -will also treat with PPI In case of gastritis or PUD therapeutic paracentesis 08/07/20 for almost 6 liters he had a lot of pain relief And is still doing well, no abdominal pain follow up on analysis: only 120WBC so does not meet criteria for SBP consider therapeutic tap in the future as needed For pain no need for tap at this time, abdomen remains soft although he has ascites (2) DVT of lower extremity, bilateral: DVTs are secondary to his advance cancer. Continue 1mg/kg of lovenox BID (70mg BID). continue this on discharge Watch for bleeding (3) Colon carcinoma metastatic to multiple sites: advanced colon ca with distant mets in numerous locations - liver, lungs, adrenal gland, etc. CT head without obvious mets last chemo was in June and he tolerated this poorly with chemo-induced pancytopenia requiring PRBCs, severe weakness contributing to his need for hospitalization in [place], ?neutropenic fever, etc. follows with oncology at [facility]. Dr Oconnor poor candidate for ongoing chemo, plan for home hospice family and patient agreeable to palliative care consult, sister states they are working home caregivers to have pt come home on hospice eventually plan for SNF on 08/09 - cancelled due to positive COVID test prior to transfer see below (4) Lab test positive for detection of COVID-19 virus: unclear how/when he contracted COVID reviewed records, he had a negative test on admission on 08/05 spoke with [facility], he had a negative test at their facility on 07/31 he was only at [facility] one day prior to his transfer to [facility] at this time, he has no fever, no dyspnea, No hypoxia or any other symptoms will monitor for any developing symptoms cannot go to SNF until 10 days from positive test Which would be on 08/19 d/w his sister on 08/11, she wants to take him home, however, her requirements to take him home are 14 days from positive test plus she would want him to test negative I explained that 10 days is the CDC recommendation and patients can test positive for weeks after infection, no longer standard practice to get negative test prior to discharge she feels this is necessary to keep her family members safe who would provide care to him with home hospice Pt and sister now agreeable to send to SNF prior to that time and then he could eventually go home (5) Peritoneal carcinomatosis: as noted on CT no signs of SBP, WBC < 200 therapeutic paracentesis 08/07 for almost 6 liters, feels better (6) Lower extremity edema: 2nd to DVTs and severe hypoalbuminemia. (7) Abnormal LFTs: 2nd to liver mets. no signs of hepatic encephalopathy. No need to follow any further (8) Candidiasis of mouth and esophagus: Continue magic mouthwash q6h swish/spit X2-week course (9) Essential (primary) hypertension: Continue to hold lasix cont metoprolol with appropriate hold parameters BP low normal (10) Severe protein-calorie malnutrition: 2nd to advanced colon cancer (11) Hiatal hernia: moderate, as seen on CT suspect that he likely has element of ROSAS, gastritis, etc. Continue Protonix (12) DVT prophylaxis: has DVTs of b/l LEs lovenox 70mg BID Disposition-continued stay until can be accepted at SNF 10 days after diagnosis of Covid. PT/OT consultations are placed and he will need reevaluation for an authorization for SNF. [facility] has a bed and can accept on Sat Admission and Anticipated Discharge Date Admission Date: August 05, 2020 Subjective Pt has no complaints. He was OOB to a chair today for a little while, now feels tired. He is eating. Denies CP or SOB, no abd pain. He is agreeable to SNF placement planned for this weekend and then eventually home with hospice. Review of Systems Review of Systems: All systems reviewed & are unremarkable except as noted in HPI & below Physical Exam Constitutional: WD/WN, vitals as above Eyes: + scleral abnormality (Mild icterus) Neck: trachea midline, no thyromegaly Respiratory: normal respiratory effort, lungs clear to auscultation Cardiovascular: Rate/Rhythm: regular rate and regular rhythm Heart Sounds: no murmur Extremities: + edema (2+ pitting edema of the legs bilaterally) Chest (Breasts): Chest: normal inspection of chest Gastrointestinal (Abdomen): Inspection/Auscultation: + abdomen distended (Mild) Percussion/Palpation: abdomen soft; abdomen nontender Musculoskeletal: Extremities: no cyanosis and no clubbing Skin: no rashes, warm and dry + jaundice Neurologic: CN's II-XI intact bilaterally, moves all extremities and awake; no focal motor deficits Psychiatric: A+Ox3, euthymic affect Lymphatic: no lymphedema Results & Data Results & Data ([facility]) Vital Signs (Past 12 Hours) Vital Signs Temp Pulse Resp BP Pulse Ox 08/16/20 09:02 36.7 C 92 H 18 107/56 L 96 PG Care Time/CCT Total # of Minutes Spent Total Time Spent with Patient: Total time spent is greater than 50% in coordination of care (as documented) at patient's floor/unit and/or counseling patient: Coding Level of Care Code 66055 Subseq Hosp Care Lvl 1 Diagnoses Epigastric abdominal pain R10.13 DVT of lower extremity, bilateral I82.403 Affected thrombotic vein of extremity: unspecified vein of extremity Chronicity: acute Colon carcinoma metastatic to multiple sites C18.9 Lab test positive for detection of COVID-19 virus U07.1 Peritoneal carcinomatosis C78.6 Lower extremity edema R60.0 Abnormal LFTs R94.5 Candidiasis of mouth and esophagus B37.81; B37.0 Essential (primary) hypertension I10 Severe protein-calorie malnutrition E43 Hiatal hernia K44.9 DVT prophylaxis Z29.9 (1) DVT of lower extremity, bilateral Affected thrombotic vein of extremity: unspecified vein of extremity Chronicity: acute Qualified Code(s): I82.403 - Acute embolism and thrombosis of unspecified deep veins of lower extremity, bilateral
[2020-08-17 05:57] LABS: Hematocrit (blood only) 32.9 % (42-52); Hemoglobin 10.8 g/dL (14.0-18.0); Mean Corpuscular Hemoglobin 29.4 pg (25-34); Mean Corpuscular Hgb Conc 32.8 g/dL (32-36); Mean Corpuscular Volume 89.6 fL (80-100); Mean Platelet Volume 9.4 fL (7.4-10.4); Platelet Count 194 K/uL (130-400); RDW Coefficient of Variation 18.9 % (11.5-14.5); RDW Standard Deviation 61.9 fL (36.4-46.3); Red Blood Count 3.67 M/uL (4.7-6.1); White Blood Count 15.09 K/uL (4.8-10.8)
[2020-08-17 06:34] LABS: Creatinine Clr Calc Pharmacy 140.8 ml/min; Est GFR (African American) 129.6; Est GFR (Non-African American) 111.8
[2020-08-17] MEDS: METOPROLOL SUCC 25MG EXT REL TAB PO SCH (09:00)
[2020-08-17] MEDS: CHOLECALCIFEROL 1,000 UNITS 25 MCG TAB PO SCH (09:00)
[2020-08-17] MEDS: PANTOprazole 40 MG TAB PO SCH ×2 (09:00→21:56)
[2020-08-17] MEDS: MULTIVITAMIN TAB PO SCH (09:00)
[2020-08-17] MEDS: ENOXAPARIN 80 MG/0.8 ML SYR SQ SCH ×2 (09:00→21:56)
--- NOTE | 2020-08-17 16:04 | Hospitalist Progress Note ---
Date of Service August 17, 2020 Assessment & Plan (1) Epigastric abdominal pain: Pt has abdominal carcinomatosis, had tense ascites on admission as cause of pain which has since been improved with paracentesis - also treating with PPI In case of gastritis or PUD therapeutic paracentesis 08/07/20 for almost 6 liters he had a lot of pain relief And is still doing well, no abdominal pain follow up on analysis: only 120WBC so does not meet criteria for SBP consider therapeutic tap in the future as needed For pain no need for tap at this time, abdomen remains soft although he has ascites (2) DVT of lower extremity, bilateral: DVTs are secondary to his advance cancer. Continue 1mg/kg of lovenox BID (70mg BID). continue this on discharge Watch for bleeding (3) Colon carcinoma metastatic to multiple sites: advanced colon ca with distant mets in numerous locations - liver, lungs, adrenal gland, etc. CT head without obvious mets last chemo was in June and he tolerated this poorly with chemo-induced pancytopenia requiring PRBCs, severe weakness contributing to his need for hospitalization in [place], ?neutropenic fever, etc. follows with oncology at [facility]. Dr Oconnor poor candidate for ongoing chemo, plan for home hospice family and patient agreeable to palliative care consult, sister states they are working home caregivers to have pt come home on hospice eventually plan for SNF on 08/09 - cancelled due to positive COVID test prior to transfer see below (4) Lab test positive for detection of COVID-19 virus: unclear how/when he contracted COVID reviewed records, he had a negative test on admission on 08/05 spoke with [facility], he had a negative test at their facility on 07/31 he was only at [facility] one day prior to his transfer to [facility] at this time, he has no fever, no dyspnea, No hypoxia or any other symptoms will monitor for any developing symptoms cannot go to SNF until 10 days from positive test Which would be on 08/19 d/w his sister on 08/11, she wants to take him home, however, her requirements to take him home are 14 days from positive test plus she would want him to test negative I explained that 10 days is the CDC recommendation and patients can test positive for weeks after infection, no longer standard practice to get negative test prior to discharge she feels this is necessary to keep her family members safe who would provide care to him with home hospice Pt and sister now agreeable to send to SNF prior to that time and then he could eventually go home (5) Peritoneal carcinomatosis: as noted on CT no signs of SBP, WBC < 200 therapeutic paracentesis 08/07 for almost 6 liters, feels better (6) Lower extremity edema: 2nd to DVTs and severe hypoalbuminemia. (7) Abnormal LFTs: 2nd to liver mets. no signs of hepatic encephalopathy. No need to follow any further (8) Candidiasis of mouth and esophagus: Continue magic mouthwash q6h swish/spit X2-week course (9) Essential (primary) hypertension: Continue to hold lasix cont metoprolol with appropriate hold parameters BP low normal (10) Severe protein-calorie malnutrition: 2nd to advanced colon cancer (11) Hiatal hernia: moderate, as seen on CT suspect that he likely has element of ROSAS, gastritis, etc. Continue Protonix (12) DVT prophylaxis: has DVTs of b/l LEs lovenox 70mg BID Disposition-continued stay until can be accepted at SNF 10 days after diagnosis of Covid. PT/OT consultations are placed and he will need reevaluation for an authorization for SNF. [facility] has a bed and can accept on Sat Admission and Anticipated Discharge Date Admission Date: August 05, 2020 Subjective Patient has no complaints. He is eating some of his food. He still feels too tired to try to get out of bed today and has no motivation. Denies any abdominal pains. No chest pain or shortness of breath, no headache, no cough. Review of Systems Review of Systems: All systems reviewed & are unremarkable except as noted in HPI & below Physical Exam Constitutional: WD/WN, vitals as above Eyes: + scleral abnormality (Mild icterus) Neck: trachea midline, no thyromegaly Respiratory: normal respiratory effort, lungs clear to auscultation Cardiovascular: RRR, no murmur, no edema Rate/Rhythm: regular rate and regular rhythm Heart Sounds: no murmur Extremities: + edema (2+ pitting edema of the legs bilaterally) Chest (Breasts): Chest: normal inspection of chest Gastrointestinal (Abdomen): normal bowel sounds, soft, nontender, no hepatosplenomegaly Inspection/Auscultation: + abdomen distended (Mild) Percussion/Palpation: abdomen soft; abdomen nontender Musculoskeletal: Extremities: no cyanosis and no clubbing Skin: no rashes, warm and dry + jaundice Neurologic: moves all extremities and awake; no focal motor deficits Psychiatric: A+Ox3, euthymic affect Results & Data Results & Data ([facility]) Vital Signs (Past 12 Hours) Vital Signs Temp Pulse Resp BP Pulse Ox 08/17/20 08:56 36.4 C L 101 H 18 92/67 L 96 PG Care Time/CCT Total # of Minutes Spent Total Time Spent with Patient: Total time spent is greater than 50% in coordination of care (as documented) at patient's floor/unit and/or counseling patient: Coding Level of Care Code 86669 Subseq Hosp Care Lvl 1 Diagnoses Epigastric abdominal pain R10.13 DVT of lower extremity, bilateral I82.403 Affected thrombotic vein of extremity: unspecified vein of extremity Chronicity: acute Colon carcinoma metastatic to multiple sites C18.9 Lab test positive for detection of COVID-19 virus U07.1 Peritoneal carcinomatosis C78.6 Lower extremity edema R60.0 Abnormal LFTs R94.5 Candidiasis of mouth and esophagus B37.81; B37.0 Essential (primary) hypertension I10 Severe protein-calorie malnutrition E43 Hiatal hernia K44.9 DVT prophylaxis Z29.9 (1) DVT of lower extremity, bilateral Affected thrombotic vein of extremity: unspecified vein of extremity Chronicity: acute Qualified Code(s): I82.403 - Acute embolism and thrombosis of unspecified deep veins of lower extremity, bilateral
[2020-08-18] MEDS: PANTOprazole 40 MG TAB PO SCH ×2 (09:06→20:47)
[2020-08-18] MEDS: MULTIVITAMIN TAB PO SCH (09:06)
[2020-08-18] MEDS: METOPROLOL SUCC 25MG EXT REL TAB PO SCH (09:06)
[2020-08-18] MEDS: CHOLECALCIFEROL 1,000 UNITS 25 MCG TAB PO SCH (09:06)
[2020-08-18] MEDS: ENOXAPARIN 80 MG/0.8 ML SYR SQ SCH ×2 (09:06→20:47)
--- NOTE | 2020-08-18 14:33 | Hospitalist Progress Note ---
Date of Service August 18, 2020 Assessment & Plan (1) Epigastric abdominal pain: Pt has abdominal carcinomatosis, had tense ascites on admission as cause of pain which has since been improved with paracentesis - also treating with PPI In case of gastritis or PUD therapeutic paracentesis 08/07/20 for almost 6 liters he had a lot of pain relief And is still doing well, no abdominal pain follow up on analysis: only 120WBC so does not meet criteria for SBP consider therapeutic tap in the future as needed For pain no need for tap at this time, abdomen remains soft although he has ascites (2) DVT of lower extremity, bilateral: DVTs are secondary to his advance cancer. Continue 1mg/kg of lovenox BID (70mg BID). continue this on discharge Watch for bleeding (3) Colon carcinoma metastatic to multiple sites: advanced colon ca with distant mets in numerous locations - liver, lungs, adrenal gland, etc. CT head without obvious mets last chemo was in June and he tolerated this poorly with chemo-induced pancytopenia requiring PRBCs, severe weakness contributing to his need for hospitalization in [place], ?neutropenic fever, etc. follows with oncology at [facility]. Dr Oconnor poor candidate for ongoing chemo, plan for home hospice family and patient agreeable to palliative care consult, sister states they are working home caregivers to have pt come home on hospice eventually plan for SNF on 08/09 - cancelled due to positive COVID test prior to transfer see below (4) Lab test positive for detection of COVID-19 virus: unclear how/when he contracted COVID reviewed records, he had a negative test on admission on 08/05 spoke with [facility], he had a negative test at their facility on 07/31 he was only at [facility] one day prior to his transfer to [facility] at this time, he has no fever, no dyspnea, No hypoxia or any other symptoms will monitor for any developing symptoms cannot go to SNF until 10 days from positive test Which would be on 08/19 d/w his sister on 08/11, she wants to take him home, however, her requirements to take him home are 14 days from positive test plus she would want him to test negative I explained that 10 days is the CDC recommendation and patients can test positive for weeks after infection, no longer standard practice to get negative test prior to discharge she feels this is necessary to keep her family members safe who would provide care to him with home hospice Pt and sister now agreeable to send to SNF prior to that time and then he could eventually go home (5) Peritoneal carcinomatosis: as noted on CT no signs of SBP, WBC < 200 therapeutic paracentesis 08/07 for almost 6 liters, feels better (6) Lower extremity edema: 2nd to DVTs and severe hypoalbuminemia. (7) Abnormal LFTs: 2nd to liver mets. no signs of hepatic encephalopathy. No need to follow any further (8) Candidiasis of mouth and esophagus: Continue magic mouthwash q6h swish/spit X2-week course (9) Essential (primary) hypertension: Continue to hold lasix cont metoprolol with appropriate hold parameters BP low normal (10) Severe protein-calorie malnutrition: 2nd to advanced colon cancer (11) Hiatal hernia: moderate, as seen on CT suspect that he likely has element of ROSAS, gastritis, etc. Continue Protonix (12) DVT prophylaxis: has DVTs of b/l LEs lovenox 70mg BID Disposition-continued stay until can be accepted at SNF 10 days after diagnosis of Covid. [facility] has a bed and can accept on Sat Admission and Anticipated Discharge Date Admission Date: August 05, 2020 Subjective Patient has no complaints. He is eating a little bit, does not want to get out of bed. Denies any abdominal pain, no nausea. He is incontinent to stool as per nursing. Denies chest pain or shortness of breath, no cough. He knows that he is leaving tomorrow and is happy about that. Review of Systems Review of Systems: All systems reviewed & are unremarkable except as noted in HPI & below Physical Exam Constitutional: WD/WN, vitals as above Eyes: + scleral abnormality (Mild icterus) Neck: trachea midline, no thyromegaly Respiratory: normal respiratory effort; no cough Cardiovascular: Extremities: + edema (2+ pitting edema of the legs bilaterally) Chest (Breasts): Chest: normal inspection of chest Gastrointestinal (Abdomen): Inspection/Auscultation: + abdomen distended (Mild) Percussion/Palpation: abdomen soft; abdomen nontender Musculoskeletal: Extremities: no cyanosis and no clubbing Skin: no rashes, warm and dry + jaundice Neurologic: moves all extremities and awake; no focal motor deficits Psychiatric: A+Ox3, euthymic affect Results & Data Results & Data ([facility]) Vital Signs (Past 12 Hours) Vital Signs Temp Pulse Resp BP Pulse Ox 08/18/20 09:04 36.3 C L 99 H 16 107/74 99 PG Care Time/CCT Total # of Minutes Spent Total Time Spent with Patient: Total time spent is greater than 50% in coordination of care (as documented) at patient's floor/unit and/or counseling patient: Coding Level of Care Code 54725 Subseq Hosp Care Lvl 1 Diagnoses Epigastric abdominal pain R10.13 DVT of lower extremity, bilateral I82.403 Affected thrombotic vein of extremity: unspecified vein of extremity Chronicity: acute Colon carcinoma metastatic to multiple sites C18.9 Lab test positive for detection of COVID-19 virus U07.1 Peritoneal carcinomatosis C78.6 Lower extremity edema R60.0 Abnormal LFTs R94.5 Candidiasis of mouth and esophagus B37.81; B37.0 Essential (primary) hypertension I10 Severe protein-calorie malnutrition E43 Hiatal hernia K44.9 DVT prophylaxis Z29.9 (1) DVT of lower extremity, bilateral Affected thrombotic vein of extremity: unspecified vein of extremity Chronic ity: acute Qualified Code(s): I82.403 - Acute embolism and thrombosis of unspecified deep veins of lower extremity, bilateral
[2020-08-19] MEDS ORDERED: METHYLCELLULOSE POWDER 454 GM JAR PO PRN (02:48)
[2020-08-19] MEDS: PANTOprazole 40 MG TAB PO SCH (08:57)
[2020-08-19] MEDS: METOPROLOL SUCC 25MG EXT REL TAB PO SCH (08:57)
[2020-08-19] MEDS: ENOXAPARIN 80 MG/0.8 ML SYR SQ SCH (08:58)
[2020-08-19] MEDS: MULTIVITAMIN TAB PO SCH (08:58)
[2020-08-19] MEDS: CHOLECALCIFEROL 1,000 UNITS 25 MCG TAB PO SCH (08:59)
--- NOTE | 2020-08-19 11:01 | Discharge Summary ---
Date of Service August 19, 2020 Admission HPI Per Admitting Provider Chief Complaint: abdominal pain Primary Care Provider: LULA PCP 65yo male with history of stage 4 colon cancer who presents with diffuse abdominal pain. This started while eating lunch at [facility]. He is there for rehab following an admission to [facility] for chemo-induced pancytopenia and weakness. The pain is constant, sharp, and associated with diarrhea. Diarrhea started about the time of his discharge from [facility] and subsequent admission to [facility]. Diarrhea is about 1x/day. No blood in the stool. No fevers/chills. He thinks he had paracentesis at [facility] during his recent admission but isn't quite certain. No cough, shortness of breath, or chest pain. A limited number of records were available from [facility]. Records show that patient received cefepime via his port while at [facility] (for neutropenic fever?) and was discharged to [facility] with ongoing cefepime use. Records don't describe any positive blood culture or pneumonia. He received PRBCs for anemia. Principal Diagnosis Abdominal pain secondary to metastatic colon cancer, malignant ascites, bilateral DVTs present on admission Discharge Exam Constitutional + cachectic Eyes + scleral abnormality (Mild icterus) Neck trachea midline, no thyromegaly Respiratory normal respiratory effort; no cough Cardiovascular Extremities: + edema (2+ pitting edema of the legs bilaterally) Chest (Breasts) Chest: normal inspection of chest Gastrointestinal (Abdomen) Inspection/Auscultation: + abdomen distended (Mild) Percussion/Palpation: abdomen soft; abdomen nontender Musculoskeletal Extremities: no cyanosis and no clubbing Skin no rashes, warm and dry + jaundice Neurologic moves all extremities and awake; no focal motor deficits Psychiatric A+Ox3, euthymic affect Discharge Data Allergies Allergy/AdvReac Type Severity Reaction Status Date / Time No Known Allergies Allergy Unverified 08/05/20 10:26 Consultations 08/05/20 13:55 ED Decision to Admit Stat 08/07/20 07:00 Consult Palliative Care Routine Ordered Studies 08/05/20 11:29 CT abd pelvis IV con only Stat 08/05/20 14:56 US venous doppler LE BI Stat 08/05/20 16:42 CT head/brain wo con Urgent 08/07/20 09:00 US paracentesis abd w/image Routine Abdomen/Pelvis CT 08/05/20 11:[address] WITH IV CONTRAST CT DOSE: 600.78 mGy.cm HISTORY: Generalized abdominal pain. Metastatic colon cancer. TECHNIQUE: Multiaxial CT images of the abdomen and pelvis were performed following the use of intravenous contrast. A dose lowering technique was utilized adhering to the principles of ALARA. COMPARISON STUDY: None. FINDINGS: Multiple scattered pulmonary nodules seen within the lung bases. Some of these are calcified. Dominant nodule within the left lower lobe measures 2 cm. This is concerning for extensive disease. Trace left pleural effusion. Moderate hiatus hernia containing a portion of the stomach and fluid. A catheter tip is seen within the superior cavoatrial junction. The heart is normal in size. A few subcentimeter right anterior diaphragmatic lymph nodes are noted. No pneumoperitoneum. No pneumatosis. 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 This is consistent with a chronic process. No suspicious lytic or blastic osseous lesions. Old left posterior rib fracture is noted. Moderate body wall edema. Innumerable hepatic lesions consistent with metastatic disease. Some of these are calcified suggesting posttreatment changes. This is a pseudocirrhosis appearance of the liver due to the metastatic lesions. The gallbladder is significantly retracted. The main portal vein is patent. The pancreas and spleen enhance normally. Normal left adrenal gland. A 4.7 cm heterogeneous lesion within the right adrenal gland consistent with a metastasis. No retroperitoneal lymphadenopathy. Normal caliber abdominal aorta. The bladder is unremarkable. No hydronephrosis. Bilateral peripelvic renal cysts, left greater than right. The kidneys enhance normally. Small to moderate ascites. Focal area of omental nodularity within the right upper quadrant best seen on image 234. Therefore, these findings likely represent peritoneal carcinomatosis. Mild pelvic floor collapse. Questionable thickening of the mid sigmoid colon which could be due to underdistention. The patient's known malignancy, a low-grade colitis, or diverticulitis could also have a similar appearance. No evidence for bowel obstruction. Normal appendix. IMPRESSION: 1. Extensive metastatic disease as described above including peritoneal carcinomatosis with a small to moderate amount of ascites. 2. Questionable thickening of the mid sigmoid colon which could be due to underdistention. The patient's known malignancy, a low-grade colitis, or diverticulitis could also have a similar appearance. 3. Additional findings as described above. ACT 112: Negative or not required by law. Electronically signed by: Santiago Llamas M.D. 08/05/2020 12:18 PM Venous Doppler Study 08/05/20 14:56 BILATERAL LOWER EXTREMITY VENOUS DOPPLER HISTORY: colon ca; bilateral lower extremity edema; eval DVT COMPARISON STUDY: None. FINDINGS: Near occlusive thrombus involving the right common femoral vein. The remaining right lower extremity deep venous structures are patent. The left common femoral and superficial femoral veins are patent. There is near occlusive thrombus involving the left popliteal, posterior tibial, peroneal veins. IMPRESSION: Bilateral lower extremity DVT as described above. ACT 112: Negative or not required by law. Electronically signed by: Santiago Llamas M.D. 08/05/2020 3:[address] 08/05/20 16:[address] DOSE: 614.27 mGy.cm HISTORY: Altered mental status. colon ca; eval for intracranial pathology TECHNIQUE: Multiaxial CT images of the head were performed without the use of intravenous contrast. Automated exposure control was utilized for this study. A dose lowering technique was utilized adhering to the principles of ALARA. Comparison: None. Findings: Mild mucosal thickening within the maxillary sinuses. The mastoid air cells are clear. The calvarium and skull base are intact. There is no mass, hematoma, midline shift, acute infarct. White matter hypodensity is nonspecific but suggestive of microvascular ischemic change. The ventricles and sulci demonstrate mild age-related involutional changes. Moderate cerebellar atrophy resulting in prominence of the cisterna magna. Impression: No acute intracranial abnormality. Moderate cerebellar atrophy. ACT 112: Negative or not required by law. Electronically signed by: Santiago Llamas M.D. 08/05/2020 5:46 PM Paracentesis Ultrasound 08/07/20 09:00 ULTRASOUND GUIDED DIAGNOSTIC AND THERAPEUTIC PARACENTESIS CLINICAL HISTORY: ascites likely malignant COMPARISON STUDY: CT of the abdomen and pelvis August 05, 2020. PROCEDURE: The risks, benefits, and alternatives to the procedure were discussed with the patient including the risk of bleeding, infection and injury to adjacent structures. The patient agreed to the procedure and informed written consent was obtained. Following real-time ultrasound localization, the skin was prepped and draped. Following local anesthesia with Xylocaine, the sheath paracentesis needle was inserted and approximately 5 liters of straw-colored fluid was removed by vacuum suction. The patient tolerated the procedure well and no immediate complications were evident. IMPRESSION: Ultrasound-guided paracentesis with removal of 5 liters of ascites. 1 L of ascites was sent to the laboratory for analysis as ordered. ACT 112: Negative or not required by law. Electronically signed by: Edward Davis M.D. 08/07/2020 10:05 AM Hospital Course (1) Epigastric abdominal pain: Pt has abdominal carcinomatosis, had tense ascites on admission as cause of pain which has since been improved with paracentesis - also treating with PPI In case of gastritis or PUD therapeutic paracentesis 08/07/20 for almost 6 liters he had a lot of pain relief And is still doing well, no abdominal pain and abdomen is soft on the day of discharge follow up on analysis: only 120WBC so does not meet criteria for SBP consider therapeutic tap in the future as needed For pain no need for tap at this time, abdomen remains soft although he has ascites (2) DVT of lower extremity, bilateral: DVTs are secondary to his advance cancer. Continue 1mg/kg of lovenox BID (70mg BID). continue this on discharge, but advised family that if has trouble with bleeding or injections become too painful, he can stop on hospice care Watch for bleeding (3) Colon carcinoma metastatic to multiple sites: advanced colon ca with distant mets in numerous locations - liver, lungs, adrenal gland, etc. CT head without obvious mets last chemo was in June and he tolerated this poorly with chemo-induced pancytopenia requiring PRBCs, severe weakness contributing to his need for hospitalization in [place], ?neutropenic fever, etc. follows with oncology at [facility]. Dr Oconnor poor candidate for ongoing chemo, plan for home hospice family and patient agreeable to palliative care consult, sister states they are working home caregivers to have pt come home on hospice eventually plan for SNF on 08/09 - cancelled due to positive COVID test prior to transfer see below (4) Lab test positive for detection of COVID-19 virus: unclear how/when he contracted COVID reviewed records, he had a negative test on admission on 08/05 spoke with [facility], he had a negative test at their facility on 07/31 he was only at [facility] one day prior to his transfer to [facility] at this time, he has no fever, no dyspnea, No hypoxia or any other symptoms will monitor for any developing symptoms cannot go to SNF until 10 days from positive test Which would be on 08/19 d/w his sister on 08/11, she wants to take him home, however, her requirements to take him home are 14 days from positive test plus she would want him to test negative I explained that 10 days is the CDC recommendation and patients can test positive for weeks after infection, no longer standard practice to get negative test prior to discharge she feels this is necessary to keep her family members safe who would provide care to him with home hospice Pt and sister now agreeable to send to SNF prior to that time and then he could eventually go home (5) Peritoneal carcinomatosis: as noted on CT no signs of SBP, WBC < 200 therapeutic paracentesis 08/07 for almost 6 liters, feels better (6) Lower extremity edema: 2nd to DVTs and severe hypoalbuminemia. (7) Abnormal LFTs: 2nd to liver mets. no signs of hepatic encephalopathy. No need to follow any further (8) Candidiasis of mouth and esophagus: Continue nystatin swish and swallow 4 times daily for 2 more weeks (9) Essential (primary) hypertension: Discontinued home Lasix cont metoprolol BP low normal (10) Severe protein-calorie malnutrition: 2nd to advanced colon cancer Diet as tolerated (11) Hiatal hernia: moderate, as seen on CT suspect that he likely has element of ROSAS, gastritis, etc. Continue PPI (12) DVT prophylaxis: has DVTs of b/l LEs lovenox 70mg BID Disposition-stable for discharge to [facility] Total Time Total Time Spent Total Time Spent (In Minutes): 35 minutes Total Time Includes: Examination of the Patient, Discharge Planning, Medication Reconciliation and Other (Discussed care with sister on the phone on day of discharge) Discharge Plan Discharge Items Patient Disposition: Transfer [facility] Fac Reason For Visit: ABD PAIN STAGE 4 COLON CANCER Discharge Diagnosis: Metastatic colon cancer, COVID-19, Bilateral lower extremity DVT Condition on Discharge: Fair Activity: As commented below Bathing: No limitations Exercise/Sports: As tolerated Non-emergency contact: Primary Care Provider Call non-emergency contact if: you have any medication questions, your symptoms worsen and your pain is not controlled Follow-up/Referrals: PCP,NO [Primary Care Provider] - Diet: Regular Addtl Attending Provider Instructions: You were admitted with metastatic colon cancer to the abdomen and had 6 liters of fluid drained with relief of your pain. You also unfortunately tested positive for COVID, but fortunately had no symptoms. You were also found to have blood clots in your legs and will need to stay on Lovenox injections as a blood thinner. You have chosen to go to rehab and then eventually home with hospice due to your cancer diagnosis. It has been a pleasure taking care of you, Dr. Astrid Noe Pending Studies at Discharge: No Stand-Alone Forms: My [facility] Skilled Items Patient informed of condition?: Yes DNR: Yes Discharge Level of Care: Skilled Communicable Disease: No Discharge Prognosis: Stable Lines: None Urinary Catheter: No Medications and DC Order Prescriptions: New enoxaparin [Lovenox] 80 mg/0.8 mL Syringe 70 mg subcut Q12 180 Days Qty: 252 RF: 0 nystatin 100,000 unit/mL suspension 5 ml PO QID 14 Days Qty: 280 RF: 0 Continued multivitamin Tablet 1 tab PO QAM RF: 0 metoprolol succinate 25 mg Tablet Extended Release 24 Hr 25 mg PO QAM RF: 0 cholecalciferol (vitamin D3) [Vitamin D3] 50 mcg (2,000 unit) Capsule 50 mcg PO QAM RF: 0 Changed pantoprazole 40 mg Tablet,Delayed Release (Dr/Ec) 40 mg PO BID Qty: 0 RF: 0 Discontinued docusate sodium 100 mg Capsule 100 mg PO BID RF: 0 furosemide [Lasix] 20 mg Tablet 20 mg PO BID RF: 0 potassium chloride 20 mEq Tablet Extended Release 20 meq PO BIDM RF: 0 cefepime [Maxipime] 2 gram Recon Soln 2 g IV Q12H RF: 0 sodium chloride 0.9 % (flush) [Normal Saline Flush] Syringe 10 ml IV Q12H RF: 0 Discharge Orders: Discharge Order (Routine); Ordered 08/19/20 Ordered By: Astrid Ocampo/Other Patient Handouts: 2019-nCoV Admission Data Admit Date/Time: 08/05/20 20:23 Attending Provider: Astrid Noe Admit Provider: Talha Kahn Primary Care Provider: PCP,NO Other Providers: Talha Kahn ; Ania Dougherty ; [facility], Other Interventions: Discharge Summary Assessment (RN) Last Done: 08/19/20 10:40 Coding Level of Care Code D/C Day Management >30 mins Diagnoses Epigastric abdominal pain R10.13 DVT of lower extremity, bilateral I82.403 Affected thrombotic vein of extremity: unspecified vein of extremity Chronicity: acute Colon carcinoma metastatic to multiple sites C18.9 Lab test positive for detection of COVID-19 virus U07.1 Peritoneal carcinomatosis C78.6 Lower extremity edema R60.0 Abnormal LFTs R94.5 Candidiasis of mouth and esophagus B37.81; B37.0 Essential (primary) hypertension I10 Severe protein-calorie malnutrition E43 Hiatal hernia K44.9 DVT prophylaxis Z29.9
== END 2020-08-19 12:21 | DRG 374 ==
LOC: ED 10:03 → 2W 10:03 → SUATTDRO 20:23 → 3E 08-09 16:41